=== PATIENT | female | born 1940 | race Caucasian/White ===

== ENCOUNTER → 2019-06-22 10:28 | Outpatient (BNVA) | payer MEDICARE, BC, OTHER, SELFPAY | PROVIDERS: Family Provider Nurse Practitioner Family; Referring Provider Nurse Practitioner Family; Visit Provider Internal Medicine Rheumatology | DX: M19.90 Unspecified osteoarthritis, unspecified site (principal); Z79.899 Other long term (current) drug therapy; M79.89 Other specified soft tissue disorders; Z11.1 Encounter for screening for respiratory tuberculosis | CPT/HCPCS: 36415; 80076; 82306; 82565; 85025; 86480 ==

== ENCOUNTER → 2019-06-22 11:46 | Outpatient (BNVA) | payer MEDICARE, BC, OTHER, SELFPAY | PROVIDERS: Family Provider Nurse Practitioner Family; Referring Provider Nurse Practitioner Family; Visit Provider Internal Medicine Rheumatology | DX: M19.90 Unspecified osteoarthritis, unspecified site (principal); Z79.899 Other long term (current) drug therapy; M79.89 Other specified soft tissue disorders | CPT/HCPCS: 85025 ==

== ENCOUNTER → 2019-07-28 08:49 | Outpatient (BNVA) | payer MEDICARE, OTHER, MEDICAID, SELFPAY | PROVIDERS: Family Provider Nurse Practitioner Family; Visit Provider Internal Medicine Rheumatology | DX: M05.9 Rheumatoid arthritis with rheumatoid factor, unspecified (principal); Z79.52 Long term (current) use of systemic steroids; Z13.820 Encounter for screening for osteoporosis; M19.90 Unspecified osteoarthritis, unspecified site; E55.9 Vitamin D deficiency, unspecified | CPT/HCPCS: 99214 ==

== ENCOUNTER 2019-08-10 14:59 | Outpatient (CLI) | payer MEDICARE, MEDICAID, SELFPAY ==
--- NOTE | 2019-08-10 15:15 | XR_ITS ---
WS: [id number] SCREENING DEXA SCAN [employer] CLINICAL INFORMATION: Osteoporosis screening COMPARISON: None. FINDINGS: Lumbar scoliosis. The L1-L4 bone mineral density measures 1.109 g/cm2. This corresponds to a T score score of -0.6 and Z score of 1.5. Left femoral neck bone mineral density measures 0.477 g/cm2. This corresponds to a T score of -4.2 an d Z score of -2.1. Right femoral neck bone mineral density measures 0.453 g/cm2. This corresponds to a T score -4.4of an d Z score of -2.3. Mean femoral neck bone mineral density measures 0.465 g/cm2. This corresponds to a T score of -4.3 an d Z score of -2.2. XR/XR DEXA axial skeleton* [id number] IMPRESSION: Osteoporosis Patient's FRAX calculated 10 year probability for major osteoporotic fracture i s 49.3 % and osteoporotic hip fracture is 27.0%.
== END 2019-08-10 15:00 | disposition home or self-care (01) ==
LOC: RADWPI 15:06
PROVIDERS: Family Provider Nurse Practitioner Family; PCP Nurse Practitioner Family; Visit Provider Internal Medicine Rheumatology
DX: Z13.820 Encounter for screening for osteoporosis (principal); Z79.52 Long term (current) use of systemic steroids; M41.86 Other forms of scoliosis, lumbar region
CPT/HCPCS: 77080

== ENCOUNTER 2019-11-01 14:40 | Observation (INO) | payer MEDICARE, OTHER, MEDICAID, SELFPAY ==
[2019-11-01] VITALS (7 sets, daily range): BP systolic 130–152; BP diastolic 69–95; PULSE 66–91; RESP 16–25; TEMP 36.6–36.7; O2SAT 95–97; BMI 22.6
--- NOTE | 2019-11-01 14:50 | ECG_ITS ---
Measurements Intervals [place] Rate: 72 P: 67 WV: 162 QRS: -7 QRSD: 132 T: -14 QT: 427 QTc: 470 SINUS RHYTHM RIGHT BUNDLE BRANCH BLOCK [120+ ms QRS DURATION, UPRIGHT V1, 40+ ms S IN I/aVL/V4/V5/V6] Compared to ECG 06/05/2016 13:35:37 Ventricular premature complex(es) no longer present Electronically Signed On 11-02-2019 17:02:17 CDT by Jonah Casas M.D. [id number]
--- NOTE | 2019-11-01 14:53 | ED_ITS ---
HPI - Chest Pain General: Chief Complaint: Chest Pain Stated Complaint: CHEST PAIN Time Seen by Provider: 11/01/19 14:50 Source: patient and EMS Mode of arrival: EMS Limitations: no limitations History of Present Illness: HPI narrative: 79-year-old female who has a history of rheumatoid arthritis and chest pain. Patient states the pain is been a pressure type pain. States pain is resolved with nitro. Patient's currently pain-free. She denies any fever or shortness of breath. MD complaint: chest pain Onset (ago): hour(s) Timing of current episode: episodic Onset: during rest Pain location: substernal Pain radiation: none Severity: moderate Quality: tightness Relieving factors: nitroglycerin Exacerbating factors: nothing Associated symptoms: Deny abdominal pain, dyspnea, fever(s), nausea or vomiting Review of Systems Const: Denies: fever(s), chills, body aches or change in appetite Eyes: Denies: blurry vision or eye discomfort ENMT: Denies: throat pain or dental pain Card: Reports: chest pain Resp: Denies: dyspnea GI: Denies: abdominal pain, nausea, vomiting or diarrhea : Denies: dysuria Musc: Denies: neck pain or back pain Skin/Breast: Denies: rash Neuro: Denies: headache(s) Psych: Denies: depression Claudy/Lymph: Denies: easy bruising All/Imm: Denies: urticaria PFSH ED PFSH: Medical History (Updated 07/28/19 @ 09:50 by Giorgi Patel MD) Current chronic use of systemic steroids High risk medication use Immunization counseling Osteoporosis screening Rheumatoid arthritis with rheumatoid factor Surgical History (Updated 07/28/19 @ 09:50 by Giorgi Patel MD) History of hysterectomy Family History (Updated 07/28/19 @ 08:59 by Magaly Larkin LPN) Father Myocardial infarction Daughter Diabetes Brother Cancer CHF (congestive heart failure) Denies family history of Rheumatoid arthritis Lupus Social History (Updated 06/04/19 @ 15:01 by Magaly Larkin LPN) Smoking and tobacco status: never smoked Alcohol intake: never Physical Exam Const: COMMON NORMALS: no acute distress, patient oriented x3 and healthy appearing HENMT: COMMON NORMALS: normocephalic and atraumatic HEAD & SCALP: normocephalic and atraumatic Eye: COMMON NORMALS: Equal, round and reactive pupils present and EOMs intact bilaterally PUPIL: Yes Equal, round and reactive pupils present Neck/C-Spine: COMMON NORMALS: full ROM and supple Chest: COMMONS NORMALS: normal inspection of the chest and normal palpation of entire chest wall Resp: COMMON NORMALS: normal respiratory effort, No retractions, No use of accessory muscles and clear to auscultation bilaterally AUSCULTATION: clear to auscultation bilaterally Cardio: COMMON NORMALS: regular rate, regular rhythm and No murmurs present (Cardio) RATE: regular rate RHYTHM: regular rhythm GI: COMMON NORMALS: Normal to inspection, nondistended, normoactive bowel sounds present, Soft to palpation, non-tender and no masses PALPATION: Yes Soft to palpation Extremity: COMMON NORMALS: normal to inspection and full ROM Neuro: COMMON NORMALS: patient oriented x3, moves all extremities and no focal motor deficits Psych: COMMON NORMALS: mental status grossly normal, Normal thought process present and cooperative THOUGHT PROCESS: Normal thought process present Skin: COMMON NORMALS: no rashes or lesions noted and no wounds GENERAL SKIN EXAM: no rashes or lesions noted Course Vital Signs: Vital signs: Vital Signs Temperature 98.1 F 11/01/19 14:43 Pulse Rate 91 11/01/19 14:43 Respiratory Rate 18 11/01/19 14:43 Blood Pressure 135/82 11/01/19 14:43 Pulse Oximetry 96 11/01/19 14:43 MDM - Chest Pain MDM Narrative: Medical decision making narrative: Patient presents here with chest pain with normal EKG does have slightly elevated troponin. Patient given aspirin in route. Patient has been chest pain free here. I spoke to hospitalist Dr. Butler who is admitting. Lab Data: Labs: Lab Results 11/01/19 11/01/19 11/01/19 Range/Units 15:00 15:00 15:00 WBC 6.9 (4.0-10.0) 10^3/ uL RBC 3.19 L (4.1-5.3) 10^6/u L Hgb 10.7 L (11.5-15.3) g/dL Hct 33.4 L (37.0-47.0) % MCV 104.7 H (81-99) fL MCH 33.5 (28.0-34.0) pg MCHC 32.0 (30.0-36.0) g/dL RDW 13.5 (12.1-15.1) % Plt Count 284 (130-400) 10^3/c mm MPV 9.2 (7.4-10.4) fL Neut % (Auto) 65.8 % Lymph % (Auto) 27.3 % [place] % (Auto) 5.4 % Eos % (Auto) 0.6 % Baso % (Auto) 0.6 % Neut # (Auto) 4.5 (1.8-7.7) 10^3/u L Lymph # (Auto) 1.9 (0.8-4.8) 10^3/u L [place] # (Auto) 0.4 (0.2-0.9) 10^3/u L Eos # (Auto) 0.0 (0.0-0.8) 10^3/u L Baso # (Auto) 0.0 (0.0-0.1) 10^3/u L Nucleated RBC % (a uto) 0 % Nucleated RBCs # 0.0 /100WBC Sodium 137 (136-145) mmol/L Potassium 4.5 (3.5-5.1) mmol/L Chloride 100 (98-107) mmol/L Carbon Dioxide 22 (22-29) mmol/L Anion Gap 19.5 H (5-19) BUN 11 (8-23) mg/dL Creatinine 0.8 (0.5-0.9) mg/dL Glucose 137 H (65-115) mg/dL Calculated Osmolal ity 282 L (285-295) mOsm/k g Calcium 9.7 (8.5-10.5) mg/dL Total Bilirubin 0.2 (0.15-1.2) mg/dL AST 25 (0-32) U/L ALT 20 (0-33) U/L Alkaline Phosphata se 63 (35-105) IU/L Troponin T Baselin e 68 H (0-10) ng/mL Total Protein 6.7 (6.6-8.7) g/dL Albumin 3.8 (3.5-5.2) g/dL Globulin 2.9 (1.3-4.6) g/dL EKG Data^: EKG 1: Attestation: I personally reviewed and interpreted this EKG as follows: EKG interpretation date: 11/01/19 EKG interpretation time: 14:53 Interpretation: nsr hr [address] or t wave abnormalities qrs 122 qtc 423 Discharge Plan Discharge Prescriptions: No Action methotrexate sodium 2.5 mg tablet See Rx Instructions PO DAILY RF: 0 aspirin [Adult Low Dose Aspirin] 81 mg tablet,delayed release (DR/EC) 81 mg PO DAILY RF: 0 atenolol 25 mg tablet 25 mg PO DAILY RF: 0 polysaccharide iron complex [Ferrex 150] 150 mg iron capsule 150 mg PO DAILY RF: 0 folic acid 1 mg tablet 1 mg PO DAILY RF: 0 hydrocodone-acetaminophen 10-325 mg tablet 1 tab PO Q6H PRN (Reason: RHEUMATOID ARTHRITIS) RF: 0 lisinopril 2.5 mg tablet 2.5 mg PO DAILY RF: 0 prednisone 5 mg tablet 5 mg PO DAILY RF: 0 alendronate [Fosamax] 70 mg tablet 70 mg PO .once a week 30 Days Qty: 5 RF: 5 Oyster Shell Calcium 500 500 mg calcium (1,250 mg) Tablet 1,000 mg PO DAILY RF: 0 Zoya-Lanta 200-200-20 mg/5 mL Suspension 30 ml PO QID PRN (Reason: Acid Reflux) RF: 0 cefdinir 300 mg Capsule 300 mg PO BID RF: 0 cholecalciferol (vitamin D3) 50 mcg (2,000 unit) Tablet 50 mcg PO DAILY RF: 0 Coding Level of Care Code ED Digital Marketing Assistant for Chg Fwd Exam Comprehensive
[2019-11-01 15:04] LABS: Basophils % 0.6 %; Eosinophils % 0.6 %; Hematocrit 33.4 % (37.0-47.0); Hemoglobin 10.7 g/dL (11.5-15.3); Lymphocytes # 1.9 10^3/uL (0.8-4.8); Lymphocytes % 27.3 %; Mean Corpuscular Hemoglobin 33.5 pg (28.0-34.0); Mean Corpuscular Volume 104.7 fL (81-99); Mean Platelet Volume 9.2 fL (7.4-10.4); Monocytes # 0.4 10^3/uL (0.2-0.9); Monocytes % 5.4 %; Neutrophils # 4.5 10^3/uL (1.8-7.7); Neutrophils % 65.8 %; Nucleated Red Blood Cells % 0 %; Platelet Count 284 10^3/cmm (130-400); Red Blood Count 3.19 10^6/uL (4.1-5.3); Red Cell Distribution Width 13.5 % (12.1-15.1); White Blood Count 6.9 10^3/uL (4.0-10.0)
[2019-11-01 15:19] LABS: Alanine Aminotransferase 20 U/L (0-33); Albumin Level 3.8 g/dL (3.5-5.2); Alkaline Phosphatase 63 IU/L (35-105); Anion Gap 19.5 (5-19); Aspartate Amino Transferase 25 U/L (0-32); Blood Urea Nitrogen 11 mg/dL (8-23); Calcium 9.7 mg/dL (8.5-10.5); Carbon Dioxide 22 mmol/L (22-29); Chloride 100 mmol/L (98-107); Creatinine Clr Calc Pharmacy 50.0138; Globulin 2.9 g/dL (1.3-4.6); Glucose 137 mg/dL (65-115); Osmolality Calculated 282 mOsm/kg (285-295); Potassium 4.5 mmol/L (3.5-5.1); Sodium 137 mmol/L (136-145); Total Bilirubin 0.2 mg/dL (0.15-1.2); Total Protein 6.7 g/dL (6.6-8.7)
[2019-11-01 15:21] LABS: Troponin(5th) Baseline 68 ng/mL (0-10)
--- NOTE | 2019-11-01 16:00 | XRR_ITS ---
PROCEDURE INFORMATION: Exam: XR Chest, 1 View Exam date and time: 11/01/2019 4:00 PM Age: 79 years old Clinical indication: Chest pain; Additional info: Cp TECHNIQUE: Imaging protocol: XR of the chest Views: 1 view. COMPARISON: CR Chest 2 views* [id number] 05/20/2019 11:06 AM FINDINGS: Lungs: There are pulmonary parenchymal calcifications consistent with remote granulomatous organism exposure. Pleural space: Unremarkable. No pleural effusion. No pneumothorax. Heart/Mediastinum: Large hernia containing bowel loops is similar to the prior study and obscures the right lung base. Possible cardiomegaly. Heart border is obscured by the hernia. Vasculature: There is calcified plaque in the aortic arch. Bones/joints: Generalized osteopenia. High-riding humeral heads abut the undersurfaces of the acromion processes consistent with rotator cuff tendon tears, similar to the prior study. XR/XR chest 1V portable [id number] IMPRESSION: Large hernia containing bowel loops is similar to the prior study and obscures the right lung base.
--- NOTE | 2019-11-01 16:50 | ECG_ITS ---
Measurements Intervals [place] Rate: 69 P: 61 VA: 154 QRS: -8 QRSD: 133 T: -14 QT: 411 QTc: 443 SINUS RHYTHM RIGHT BUNDLE BRANCH BLOCK [120+ ms QRS DURATION, UPRIGHT V1, 40+ ms S IN I/aVL/V4/V5/V6] Compared to ECG 06/05/2016 13:35:37 Ventricular premature complex(es) no longer present Electronically Signed On 11-02-2019 17:07:05 CDT by Jonah Casas M.D. [id number]
[2019-11-01 17:06] LABS: Troponin 5 2HR 70.02 ng/mL (0-10); Troponin 5 2HR Delta 2.02 ABS# (0-10)
--- NOTE | 2019-11-01 17:48 | PM.HP ---
Providers/Chief Complaint Admitting Physician: Antonio Campbell MD Primary Care Provider: Yamileth Grove Chief Complaint: CHEST PAIN History of Present Illness Isa Tompkins is a 79 year old female with a past medical history of SVT on atenolol, rheumatoid arthritis on methotrexate and chronic prednisone, hypertension, hyperlipidemia history of beta-natalia induced bradycardia, chronic systolic and diastolic CHF, who presents to [facility] due to complaints of chest pain. Patient states that she is a patient of Dr. Grove, she has been doing well for the last few months, she is not any able to come out of the assisted living facility as her lockdown due to COVID-19 precautions, she is not been able to see her who is in the dementia unit, nor has she been able to see her family members, which has been distressing for her. Patient states that on Saturday, she was sitting down in a chair, watching TV, when she developed substernal chest pain lasting a few seconds, associate with diaphoresis, feeling unwell, nonradiating, no nausea, no vomiting, no lightheaded, no dizziness, sharp pain, she reported this to the nursing staff, who then, no blood, town supported patient to [facility], where she was diagnosed according to patient with a mild heart attack, and a UTI. Patient was supposed to have an outpatient follow-up with Dr. Grove and a cardiac stress test this week. But this afternoon, patient again developed an episode of substernal chest pain, sharp, nonradiating, associate this time with diaphoresis, and lightheadedness, dizziness, states that is not as severe as her chest pain on Saturday, but she looked castro according to nursing staff, and they were concerned for her wellbeing, so they transported patient to [facility] for further evaluation. Patient denies a history of CAD, no history of stent placement, no history of CABG, has had chest pain in past with a negative stress test, has a family history of CAD, no smoking, no diabetes. Review of Systems Const: Denies: fever(s), chills, fatigue or malaise Eyes: Denies: change in vision or blurry vision ENMT: Denies: nasal congestion Card: Reports: chest pain and lightheadedness; Denies: palpitations Resp: Denies: dyspnea, productive cough, non-productive cough or wheezing GI: Denies: abdominal pain, nausea, vomiting, hematemesis, diarrhea, constipation, hematochezia or melena : Denies: flank pain, dysuria or urinary frequency Musc: Denies: neck pain or back pain Skin/Breast: Denies: rash Neuro: Denies: headache(s), dizziness or vertigo Psych: Denies: anxiety or depression Endo: Denies: polyuria or polydipsia Medications/Allergies Home Medications Medication Instructions Recorded Confirmed Last Taken Type aspirin 81 mg tablet,delayed 81 mg PO DAILY tab 06/04/19 11/01/19 11/01/19 History release atenolol 25 mg tablet 25 mg PO DAILY tab 06/04/19 11/01/19 11/01/19 History folic acid 1 mg tablet 1 mg PO DAILY tab 06/04/19 11/01/19 11/01/19 History hydrocodone 10 mg-acetaminophen 1 tab PO Q6H PRN 06/04/19 11/01/19 11/01/19 History 325 mg tablet lisinopril 2.5 mg tablet 2.5 mg PO DAILY tab 06/04/19 11/01/19 11/01/19 History methotrexate sodium 2.5 mg tablet See Rx Instructions PO DAILY tab 06/04/19 11/01/19 Unknown History polysaccharide iron complex 150 mg 150 mg PO DAILY cap 06/04/19 11/01/19 11/01/19 History iron capsule prednisone 5 mg tablet 5 mg PO DAILY tab 06/04/19 11/01/19 11/01/19 History alendronate 70 mg tablet 70 mg PO .once a week 30 Days #5 08/16/19 11/01/19 Unknown Rx tab alum-mag hydroxide-simeth 30 ml PO QID PRN 11/01/19 11/01/19 10/28/19 History [Zoay-Lanta] calcium carbonate [Oyster Shell 1,000 mg PO DAILY 11/01/19 11/01/19 10/31/19 History Calcium 500] cefdinir 300 mg PO BID 11/01/19 11/01/19 11/01/19 History cholecalciferol (vitamin D3) 50 mcg PO DAILY 11/01/19 11/01/19 10/31/19 History Allergies Allergy/AdvReac Type Severity Reaction Status Date / Time No Known Allergies Allergy Unverified 11/01/19 14:43 PFSH Acute PFSH: Medical History (Updated 11/01/19 @ 16:53 by ) Current chronic use of systemic steroids High risk medication use Immunization counseling Osteoporosis screening Rheumatoid arthritis with rheumatoid factor Surgical History (Updated 07/28/19 @ 09:50 by Giorgi Patel MD) History of hysterectomy Family History (Updated 07/28/19 @ 08:59 by Magaly Larkin LPN) Father Myocardial infarction Daughter Diabetes Brother Cancer CHF (congestive heart failure) Denies family history of Rheumatoid arthritis Lupus Social History (Updated 06/04/19 @ 15:01 by Magaly Larkin LPN) Smoking and tobacco status: never smoked Alcohol intake: never Vitals/I&O/Wt Last Vital Signs Temp 97.8 F 11/01/19 17:37 Pulse 73 11/01/19 17:37 Resp 25 H 11/01/19 17:37 BP 130/74 11/01/19 17:37 Pulse Ox 95 11/01/19 17:37 Weight last 48 hrs Weight 58.06 kg Physical Exam Const: COMMON NORMALS: no acute distress and patient oriented x3 GENERAL APPEARANCE: cooperative and comfortable HENMT: COMMON NORMALS: normocephalic HEAD & SCALP: normocephalic Eye: COMMON NORMALS: Equal, round and reactive pupils present, EOMs intact bilaterally and no papilledema GENERAL EYE: appearance normal, both eyes and all related structures PUPIL: Yes Equal, round and reactive pupils present DIRECT OPHTHALMOSCOPY: Yes no papilledema Neck/C-Spine: COMMON NORMALS: full ROM, no lymphadenopathy, no JVD and Thyroid normal THYROID: Thyroid normal Lymph: LYMPHATIC: no lymphadenopathy noted Resp: COMMON NORMALS: normal respiratory effort, No retractions, No use of accessory muscles and clear to auscultation bilaterally AUSCULTATION: clear to auscultation bilaterally Cardio: COMMON NORMALS: no JVD, regular rate, regular rhythm, S1 normal heart sound present, S2 normal heart sound present, No gallops present (Cardio), No clicks present (Cardio) and No murmurs present (Cardio) RATE: regular rate RHYTHM: regular rhythm HEART SOUNDS: S1 normal heart sound present and S2 normal heart sound present GI: COMMON NORMALS: Normal to inspection, nondistended, normoactive bowel sounds present, Soft to palpation, non-tender and No hepatosplenomegaly present PALPATION: Yes Soft to palpation and Yes No hepatosplenomegaly present Extremity: COMMON NORMALS: normal to inspection, full ROM and no pedal edema Neuro: COMMON NORMALS: patient oriented x3, CN's II-XII intact bilaterally, moves all extremities and no focal motor deficits Psych: COMMON NORMALS: mental status grossly normal, Normal thought process present and cooperative THOUGHT PROCESS: Normal thought process present Data : 11/01/19 15:00 11/01/19 15:00 A&P Assessment and plan (1) Chest pain: -Chest pain, sounds cardiac in nature -Risk factors include hypertension, family history, chronic prednisone, rheumatoid arthritis -Recently on Saturday, went to [facility], diagnosed with a mild heart attack -On admission no chest pain, but initial troponin 68, 120-minute 70, delta 2.02, EKG no acute ST-T wave changes -Back in 09/20/2013, patient had a low probability stress test- -last echocardiogram on 11/27/2015 showed a slightly decreased ejection fraction of 50%, grade 1 left ventricular diastolic dysfunction, mild diffuse hypokinesis the left ventricle, more of the septum, moderate hypokinesia of the basal inferior and inferior lateral segment Plan: -Admit to cardiac stepdown unit -Aspirin, statin, atenolol -Nitro for chest pain -Telemetry monitoring, monitor for chest pain, serial EKGs, serial troponins -N.p.o. midnight -Cardiac stress test tomorrow morning -Order cardiac echocardiogram -Patient is DNR/DNI, does not want aggressive interventions -Lovenox for DVT prophylaxis Status: Acute (2) Hyperlipidemia: (3) History of paroxysmal supraventricular tachycardia: (4) Rheumatoid arthritis with rheumatoid factor: (5) Hypertension: Attestations Medical Necessity Statement*: Requires hospitalization, outpatient with observation, chest pain Coding Level of Care Code Acute Dicer Machine Operator for [facility] Fw Diagnoses Chest pain R07.9 Hyperlipidemia E78.5 History of paroxysmal supraventricular tachycardia Z86.79 Rheumatoid arthritis with rheumatoid factor M05.9 Hypertension I10
[2019-11-01 18:49] LABS: Thyroid Stimulating Hormone 0.88 uIU/mL (0.27-4.20)
[2019-11-01 18:54] LABS: NT Pro B Type Natriuretic Pept 1333 pg/mL (0-450)
[2019-11-01] MEDS: enoxaparin 40 mg/0.4 mL Syringe SUBCUT (18:55)
--- NOTE | 2019-11-01 20:50 | ECG_ITS ---
Measurements Intervals [place] Rate: 89 P: 67 CT: 156 QRS: -13 QRSD: 122 T: -16 QT: 376 QTc: 460 SINUS RHYTHM RIGHT BUNDLE BRANCH BLOCK [120+ ms QRS DURATION, UPRIGHT V1, 40+ ms S IN I/aVL/V4/V5/V6] Compared to ECG 06/05/2016 13:35:37 Ventricular premature complex(es) no longer present Electronically Signed On 11-02-2019 17:05:45 CDT by Jonah Casas M.D. [id number]
[2019-11-01] MEDS: atorvastatin 40 mg Tablet PO (21:01)
[2019-11-02 03:30] VITALS: BP 151/64; PULSE 72; RESP 21; TEMP 36.7; O2SAT 94
[2019-11-02 05:16] LABS: Basophils # 0.1 10^3/uL (0.0-0.1); Basophils % 1.2 %; Eosinophils # 0.1 10^3/uL (0.0-0.8); Eosinophils % 1.8 %; Hematocrit 33.2 % (37.0-47.0); Hemoglobin 10.6 g/dL (11.5-15.3); Lymphocytes % 33.8 %; Mean Corpuscular HGB Conc 31.9 g/dL (30.0-36.0); Mean Corpuscular Hemoglobin 32.6 pg (28.0-34.0); Mean Corpuscular Volume 102.2 fL (81-99); Mean Platelet Volume 9.3 fL (7.4-10.4); Monocytes # 0.6 10^3/uL (0.2-0.9); Monocytes % 10.3 %; Neutrophils # 3.1 10^3/uL (1.8-7.7); Neutrophils % 52.6 %; Nucleated Red Blood Cells % 0 %; Platelet Count 274 10^3/cmm (130-400); Red Blood Count 3.25 10^6/uL (4.1-5.3); Red Cell Distribution Width 13.3 % (12.1-15.1)
[2019-11-02 05:35] LABS: Alanine Aminotransferase 17 U/L (0-33); Albumin Level 3.7 g/dL (3.5-5.2); Alkaline Phosphatase 55 IU/L (35-105); Anion Gap 14.7 (5-19); Aspartate Amino Transferase 22 U/L (0-32); Blood Urea Nitrogen 10 mg/dL (8-23); Calcium 9.7 mg/dL (8.5-10.5); Carbon Dioxide 27 mmol/L (22-29); Chloride 103 mmol/L (98-107); Creatinine Clr Calc Pharmacy 50.0138; Globulin 2.8 g/dL (1.3-4.6); Glucose 103 mg/dL (65-115); Magnesium 2.1 mg/dL (1.7-2.3); Osmolality Calculated 288 mOsm/kg (285-295); Phosphorus 3.3 mg/dL (2.5-4.5); Potassium 3.7 mmol/L (3.5-5.1); Sodium 141 mmol/L (136-145); Total Bilirubin 0.3 mg/dL (0.15-1.2); Total Protein 6.5 g/dL (6.6-8.7)
[2019-11-02 05:37] LABS: Estmated Average Glucose 105; Hemoglobin A1C 5.3 % (4.0-6.0)
--- NOTE | 2019-11-02 06:00 | ECG_ITS ---
NAME OF STUDY: LEXISCAN SESTAMIBI STRESS TEST INDICATION: Chest Pain, NOTE: Please note that this is the electrocardiogram portion of the Lexiscan/Sestamibi stress test. The perfusion scan will be documented separately. DATA: Baseline heart rate was 69 beats per minute. Baseline blood pressure was 102/56 millimeters of mercury. Target heart rate was 142. Maximum heart rate achieved was 111. which was 78 % of the predicted target heart rate. Maximum blood pressure was 102/94 millimeters of mercury. The reason for ending the test was completion of the protocol. The patient did not experience any symptoms. ELECTROCARDIOGRAM: BASELINE: Sinus rhythm. Normal axis. Right bundle branch block, otherwise no ST-T changes suggestive of ischemia noted. No arrhythmia noted. EXERCISE: After Lexiscan injection, no ST-T changes suggestive of ischemic noted. No arrhythmia noted. CONCLUSION: Please note due to baseline abnormality of the EKG specificity and sensitivity of the EKG portion of LexiScan MIBI stress test will be low 1. EKG not suggestive of ischemia 2. Lexiscan injection unremarkable. 3. Perfusion scan will be documented separately. Electronically Signed On 11-02-2019 17:54:51 CDT by Chadwick Gonsales M.D. [id number]
[2019-11-02 06:20] LABS: Chol HDL Ratio 4.72 mg/dL (0.0-4.40); Cholesterol 151 mg/dL (0-200); HDL Cholesterol 32 mg/dL (60-100); LDL Cholesterol Calculated 85 mg/dL (50-129); LDL HDL Ratio 2.66 RATIO (0.00-3.22); Triglycerides 168 mg/dL (0-150)
--- NOTE | 2019-11-02 07:00 | USCV_ITS ---
Isa Tompkins Age: 79 Gender: F : 1940 Exam Date: 11/02/2019 07:09 Ordering Phys: Antonio Campbell MD Technologist: Simran Simms Exam Location: [facility] [place] Indication: CHEST PAIN BP: 151 / 64 HR: 66 Rhythm: Sinus Technical Quality: Adequate MEASUREMENTS (Male / Female) Normal Values 2D ECHO LV Diastolic Diameter PLAX 4.0 cm 4.2 - 5.9 / 3.9 - 5.3 cm LV Systolic Diameter PLAX 2.4 cm LV Chamber Size 3.8 cm IVS Diastolic Thickness 1.4 cm 0.6 - 1.0 / 0.6 - 0.9 cm IVS Systolic Thickness 1.7 cm LVPW Diastolic Thickness 1.8 cm 0.6 - 1.0 / 0.6 - 0.9 cm LVPW Systolic Thickness 1.9 cm RV Chamber Size 2.6 cm LVOT Diameter 2.0 cm LV Ejection Fraction 2D Teich 70.0 % LV Ejection Fraction MOD 2C 59.0 % LV Ejection Fraction 2C AL 59.5 % LA Diameter 3.1 cm Aorta at Sinotubular Diameter 2.7 cm M-MODE LV Diastolic Diameter MM 4.9 cm 4.2 - 5.9 / 3.9 - 5.3 cm LV Systolic Diameter MM 3.2 cm LV Ejection Fraction MM Teich 64.2 % IVS Diastolic Thickness MM 0.9 cm 0.6 - 1.0 / 0.6 - 0.9 cm IVS Systolic Thickness MM 1.1 cm LVPW Diastolic Thickness MM 1.1 cm 0.6 - 1.0 / 0.6 - 0.9 cm LVPW Systolic Thickness MM 1.2 cm Aortic Annulus Diameter 2.7 cm LA Ao Ratio MM 1.2 MV E Point Septal Separation 0.9 cm DOPPLER AV Peak Velocity 129.0 cm/s LVOT Peak Velocity 90.0 cm/s AV Area Cont Eq vti 2.8 cm squared AV Area Cont Eq pk 2.3 cm squared MV Area PHT 2.7 cm squared Mitral E to A Ratio 0.9 MV E' Velocity 8.0 cm/s Mitral E to MV E' Ratio 7.7 Mitral E to LV E' Lateral Ratio 7.9 Mitral E to LV E' Septal Ratio 7.5 TR Peak Velocity 281.0 cm/s TR Peak Gradient 31.6 mmHg TV Peak E Velocity 38.0 cm/s Right Atrial Pressure 3.0 mmHg Pulmonary Artery Systolic Pressu 34.6 mmHg PV Peak Velocity 65.0 cm/s RV Acceleration Time 0.1 s RV Ejection Time 0.3 s RV AcT/ET 0.4 FINDINGS Left Ventricle Normal left ventricular size and systolic function, EF 55 %. Grade I/IV diastolic dysfunction (abnormal relaxation filling pattern), normal to mildly elevated filling pressures. Right Ventricle Normal right ventricular size and systolic function. Right Atrium Normal right atrial size. Left Atrium Normal left atrial size. Mitral Valve Thickened mitral valve. Trace to mild mitral valve regurgitation. Aortic Valve Thickened aortic valve. Tricuspid Valve no gross abnormalities noted Pulmonic Valve Trace pulmonary valve regurgitation. Pericardium Small pericardial effusion. Aorta Normal aortic annulus size. CONCLUSIONS Normal left ventricular size and systolic function, EF 55 %. Grade I/IV diastolic dysfunction (abnormal relaxation filling pattern), normal to mildly elevated filling pressures. Thickened mitral valve. Trace to mild mitral valve regurgitation. Thickened aortic valve. Trace pulmonary valve regurgitation. Small pericardial effusion. There are no intracardiac masses. Compared to the previous study from 02/03/2016, there may not be a significant change Dr Gagandeep Grove MD [facility] (Electronically Signed) Final Date: 02 November 2019 13:20 S
[2019-11-02 07:11] VITALS: BP 164/88; PULSE 67; RESP 12; TEMP 36.6; O2SAT 98
[2019-11-02 08:15] VITALS: BP 110/81; PULSE 99
[2019-11-02] MEDS: regadenoson 0.4 Mg/5 ml Syringe IVP (08:15)
[2019-11-02] MEDS: aminophylline 25 mg/mL SDV 10 mL IVP (08:21)
[2019-11-02] MEDS: iron polysaccharide complex 150 mg Capsule PO (09:51)
[2019-11-02] MEDS: atenolol 50 mg Tablet 25 MG PO (09:51)
[2019-11-02] MEDS: calcium carbonate 500 mg Chew Tablet 1000 MG PO (09:51)
[2019-11-02] MEDS: lisinopril 2.5 mg Tablet PO (09:51)
[2019-11-02] MEDS: predniSONE 5 mg Tablet PO (09:52)
[2019-11-02] MEDS: aspirin 81 mg EC Tablet PO (09:52)
[2019-11-02] MEDS: folic acid 1 mg Tablet PO (09:52)
--- NOTE | 2019-11-02 09:57 | PC.CHAP ---
Pastoral Care Encounter/Spiritual Assessment Type of Contact [] Declined cyber forensic specialist visit [] Patient/Family/Request visit [] Outpatient visit [] Follow-up visit [] Physician referral [] Code/Alert [x] Routine visit [] Staff referral [] Actively dying [] Patient sleeping [] Family support [] [x] Out of room [] Palliative care [] [] Receiving care in room [] Pre-surgical visit [] Trauma [] Long length of stay [] ICU visit [x] Other: testing Relational/Emotional Strength [] Patient feels connected with others/family/visitors/staff [] Distress [] Loneliness/isolation [] Abandonment Spirituality of Patient [] Person of Yu [] Attends Scientology of their Yu [] Believes in Prayer [] Reads Bible or Yarsanism materials [] There are Spiritual issues to be addressed Trade Sales Assistant Interventions [] Prayer [] Active listening [] Non-anxious presence [] Spiritual/emotional support [] Crisis/trauma care [] Spiritual counseling [] Bereavement support [] Provided bereavement packet [] Provided Bible/devotional materials [] Provided toy/stuffed animal, coloring book to patient or family member [] Provided Communion [] Anointing/[place] [] Salvation [x] Completed spiritual assessment [] Other: Impact on Illness or Injury [] Angry [] Fearful [] Anxious [] Often cries [] Exhaustion [] Unable to work [] Unable to attend amish [] Unable to walk/stand [] Unable to read [] Unable to drive [] Unable to eat/drink [] Unable to sleep [] Unable to be with family [] Patient intubated [] Other: Summary Time spent with patient
--- NOTE | 2019-11-02 10:20 | PC.OT ---
OT note: Received word pt recently back from stress test. Will hold at this time.
[2019-11-02 10:33] VITALS: PULSE 72; O2SAT 96
[2019-11-02 10:38] VITALS: BP 111/70; PULSE 75; RESP 22; TEMP 36.6; O2SAT 95
[2019-11-02] MEDS: HYDROcodone-acetaminophen 10-325 mg Tablet 1 TAB PO (11:07)
--- NOTE | 2019-11-02 13:30 | PC.NURSE ---
pt up working with physical therapy
--- NOTE | 2019-11-02 13:47 | PC.NURSE ---
during rounding with , wants holter monitor placed today if possible. [facility] contacted and confirmed that is pt was down there by 4 that it could be placed today.
--- NOTE | 2019-11-02 13:56 | P.DS_ITS ---
Discharge Providers Date of Admission: 11/01/19 16:51 Date of Discharge: November 02, 2019 Attending Provider at Admission: Antonio Campbell MD Attending Provider at Discharge: Hakan Tompkins MD Primary Care Provider: Yamileth Grove Diagnoses at Discharge Discharge Diagnosis (1) Chest pain: Status: Acute (2) Rheumatoid arthritis with rheumatoid factor: Reason for Visit Reason for Visit: Reason For Visit: CHEST PAIN Hospital Course Discharge Summary: Isa Tompkins is a 79 year old female with a past medical history of SVT on atenolol, rheumatoid arthritis on methotrexate and chronic prednisone, hypertension, hyperlipidemia history of beta-natalia induced bradycardia, chronic systolic and diastolic CHF, who presents to [facility] due to complaints of chest pain. Patient states that she had the symptoms twice in 1 week but the time she was sitting in chair, watching TV. On prior episode she was admitted at [facility] where she was diagnosed of having a mild heart attack and UTI and was discharged on oral antibiotics. Patient was admitted to the hospital this time on October 31 when she started having substernal chest pain which was sharp in nature associated with diaphoresis and patient looking pale for which s he was transferred to [facility]. Her troponin cycles remained negative. Due to concerns of possible unstable angina she underwent stress test on November 01 which was negative for any active ischemia. It is possible patient's symptoms are not related to angina but could be related to arrhythmia. Specialization patient did not have any further episodes of chest discomfort and also telemetry remained normal sinus rhythm. To rule out possible arrhythmia patient was advised to have a Holter monitor for at least 2 weeks. Prior to discharge physical therapy evaluation was done which she fractured well and was independently ambulatory without any arrhythmia on telemetry as well. She is been discharged in hemodynamically stable condition with advised to follow-up with Dr. Grove who is her outpatient reporter within next 2 weeks for further management. Physical Exam Const: COMMON NORMALS: no acute distress and patient oriented x3 GENERAL APPEARANCE: cooperative and comfortable HENMT: COMMON NORMALS: normocephalic HEAD & SCALP: normocephalic Eye: COMMON NORMALS: Equal, round and reactive pupils present, EOMs intact bilaterally and no papilledema GENERAL EYE: appearance normal, both eyes and all related structures PUPIL: Yes Equal, round and reactive pupils present DIRECT OPHTHALMOSCOPY: Yes no papilledema Neck/C-Spine: COMMON NORMALS: full ROM, no lymphadenopathy, no JVD and Thyroid normal THYROID: Thyroid normal Lymph: LYMPHATIC: no lymphadenopathy noted Resp: COMMON NORMALS: normal respiratory effort, No retractions, No use of accessory muscles and clear to auscultation bilaterally AUSCULTATION: clear to auscultation bilaterally Cardio: COMMON NORMALS: no JVD, regular rate, regular rhythm, S1 normal heart sound present, S2 normal heart sound present, No gallops present (Cardio), No clicks present (Cardio) and No murmurs present (Cardio) RATE: regular rate RHYTHM: regular rhythm HEART SOUNDS: S1 normal heart sound present and S2 normal heart sound present GI: COMMON NORMALS: Normal to inspection, nondistended, normoactive bowel sounds present, Soft to palpation, non-tender and No hepatosplenomegaly present PALPATION: Yes Soft to palpation and Yes No hepatosplenomegaly present Extremity: COMMON NORMALS: normal to inspection, full ROM and no pedal edema Neuro: COMMON NORMALS: patient oriented x3, CN's II-XII intact bilaterally, moves all extremities and no focal motor deficits Psych: COMMON NORMALS: mental status grossly normal, Normal thought process present and cooperative THOUGHT PROCESS: Normal thought process present Discharge Data Data Completed and Pending: Completed Studies During Hospitalization Category Date Time Status XR chest 1V suzette ble [id number] Stat Exams 11/01/19 16:00 Completed NM yyaa perf SPECT r/s* [id number] Routin e Nuc Med 11/02/19 17:45 Completed CV echo complete* [id number] Routine Ultrasound 11/02/19 07:00 Completed Pending at discharge Category Date Time Status Sestamibi Stress Test Request Routi ne Exams 11/01/19 17:45 Stop Req Sestamibi Stress Test Request Routi ne Exams 11/02/19 06:00 Ordered Complete Blood Co unt w/Auto AM LABS Lab 11/03/19 04:00 Ordered Complete Blood Co unt w/Auto AM LABS Lab 11/04/19 04:00 Ordered Comprehensive Met abolic Panel AM LA BS Lab 11/03/19 04:00 Ordered Comprehensive Met abolic Panel AM LA BS Lab 11/04/19 04:00 Ordered Magnesium AM LABS Lab 11/03/19 04:00 Ordered Magnesium AM LABS Lab 11/04/19 04:00 Ordered Phosphorus AM LAB S Lab 11/03/19 04:00 Ordered Phosphorus AM LAB S Lab 11/04/19 04:00 Ordered Labs from last 24 hours 11/02/19 11/02/19 11/02/19 04:32 04:32 04:32 WBC RBC Hgb Hct MCV MCH MCHC RDW Plt Count MPV Neut % (Auto) Lymph % (Auto) [place] % (Auto) Eos % (Auto) Baso % (Auto) Neut # (Auto) Lymph # (Auto) [place] # (Auto) Eos # (Auto) Baso # (Auto) Nucleated RBC % (a uto) Nucleated RBCs # Sodium 141 Potassium 3.7 Chloride 103 Carbon Dioxide 27 Anion Gap 14.7 BUN 10 Creatinine 0.7 Glucose 103 Estimat Average Gl ucose 105 Hemoglobin A1c 5.3 Calculated Osmolal ity 288 Calcium 9.7 Phosphorus 3.3 Magnesium 2.1 Total Bilirubin 0.3 AST 22 ALT 17 Alkaline Phosphata se 55 Troponin I 6 Hour Troponin I Hi Sens Del Troponin T Baselin e Troponin T 120 Min [place] Delta Troponin T NT-Pro-B Natriuret Pep Total Protein 6.5 L Albumin 3.7 Globulin 2.8 Triglycerides 168 H Cholesterol 151 LDL Cholesterol, C alc 85 HDL Cholesterol 32 L LDL/HDL Ratio 2.66 Cholesterol/HDL Ra reyna 4.72 H TSH 11/02/19 11/01/19 11/01/19 04:32 21:09 16:47 WBC 6.0 RBC 3.25 L Hgb 10.6 L Hct 33.2 L MCV 102.2 H MCH 32.6 MCHC 31.9 RDW 13.3 Plt Count 274 MPV 9.3 Neut % (Auto) 52.6 Lymph % (Auto) 33.8 [place] % (Auto) 10.3 Eos % (Auto) 1.8 Baso % (Auto) 1.2 Neut # (Auto) 3.1 Lymph # (Auto) 2.0 [place] # (Auto) 0.6 Eos # (Auto) 0.1 Baso # (Auto) 0.1 Nucleated RBC % (a uto) 0 Nucleated RBCs # 0.0 Sodium Potassium Chloride Carbon Dioxide Anion Gap BUN Creatinine Glucose Estimat Average Gl ucose Hemoglobin A1c Calculated Osmolal ity Calcium Phosphorus Magnesium Total Bilirubin AST ALT Alkaline Phosphata se Troponin I 6 Hour 71.90 H Troponin I Hi Sens Del 3.90 Troponin T Baselin e Troponin T 120 Min [place] 70.02 H Delta Troponin T 2.02 NT-Pro-B Natriuret Pep Total Protein Albumin Globulin Triglycerides Cholesterol LDL Cholesterol, C alc HDL Cholesterol LDL/HDL Ratio Cholesterol/HDL Ra reyna TSH 11/01/19 11/01/19 11/01/19 15:00 15:00 15:00 WBC RBC Hgb Hct MCV MCH MCHC RDW Plt Count MPV Neut % (Auto) Lymph % (Auto) [place] % (Auto) Eos % (Auto) Baso % (Auto) Neut # (Auto) Lymph # (Auto) [place] # (Auto) Eos # (Auto) Baso # (Auto) Nucleated RBC % (a uto) Nucleated RBCs # Sodium Potassium Chloride Carbon Dioxide Anion Gap BUN Creatinine Glucose Estimat Average Gl ucose Hemoglobin A1c Calculated Osmolal ity Calcium Phosphorus Magnesium Total Bilirubin AST ALT Alkaline Phosphata se Troponin I 6 Hour Troponin I Hi Sens Del Troponin T Baselin e 68 H Troponin T 120 Min [place] Delta Troponin T NT-Pro-B Natriuret Pep 1333 H Total Protein Albumin Globulin Triglycerides Cholesterol LDL Cholesterol, C alc HDL Cholesterol LDL/HDL Ratio Cholesterol/HDL Ra reyna TSH 0.88 11/01/19 11/01/19 15:00 15:00 WBC 6.9 RBC 3.19 L Hgb 10.7 L Hct 33.4 L MCV 104.7 H MCH 33.5 MCHC 32.0 RDW 13.5 Plt Count 284 MPV 9.2 Neut % (Auto) 65.8 Lymph % (Auto) 27.3 [place] % (Auto) 5.4 Eos % (Auto) 0.6 Baso % (Auto) 0.6 Neut # (Auto) 4.5 Lymph # (Auto) 1.9 [place] # (Auto) 0.4 Eos # (Auto) 0.0 Baso # (Auto) 0.0 Nucleated RBC % (a uto) 0 Nucleated RBCs # 0.0 Sodium 137 Potassium 4.5 Chloride 100 Carbon Dioxide 22 Anion Gap 19.5 H BUN 11 Creatinine 0.8 Glucose 137 H Estimat Average Gl ucose Hemoglobin A1c Calculated Osmolal ity 282 L Calcium 9.7 Phosphorus Magnesium Total Bilirubin 0.2 AST 25 ALT 20 Alkaline Phosphata se 63 Troponin I 6 Hour Troponin I Hi Sens Del Troponin T Baselin e Troponin T 120 Min [place] Delta Troponin T NT-Pro-B Natriuret Pep Total Protein 6.7 Albumin 3.8 Globulin 2.9 Triglycerides Cholesterol LDL Cholesterol, C alc HDL Cholesterol LDL/HDL Ratio Cholesterol/HDL Ra reyna TSH Vitals: Last Vital Signs Temp 97.9 F 11/02/19 10:38 Pulse 75 11/02/19 10:38 Resp 22 H 11/02/19 10:38 BP 111/70 11/02/19 10:38 Pulse Ox 95 11/02/19 10:38 Discharge Plan Discharge Patient Disposition: Home, Self-Care Condition: Stable Prescriptions: Continued methotrexate sodium 2.5 mg tablet See Rx Instructions PO DAILY RF: 0 aspirin [Adult Low Dose Aspirin] 81 mg tablet,delayed release (DR/EC) 81 mg PO DAILY RF: 0 atenolol 25 mg tablet 25 mg PO DAILY RF: 0 polysaccharide iron complex [Ferrex 150] 150 mg iron capsule 150 mg PO DAILY RF: 0 folic acid 1 mg tablet 1 mg PO DAILY RF: 0 hydrocodone-acetaminophen 10-325 mg tablet 1 tab PO Q6H PRN (Reason: RHEUMATOID ARTHRITIS) RF: 0 lisinopril 2.5 mg tablet 2.5 mg PO DAILY RF: 0 prednisone 5 mg tablet 5 mg PO DAILY RF: 0 alendronate [Fosamax] 70 mg tablet 70 mg PO .once a week 30 Days Qty: 5 RF: 5 Oyster Shell Calcium 500 500 mg calcium (1,250 mg) Tablet 1,000 mg PO DAILY RF: 0 Zoya-Lanta 200-200-20 mg/5 mL Suspension 30 ml PO QID PRN (Reason: Acid Reflux) RF: 0 cholecalciferol (vitamin D3) 50 mcg (2,000 unit) Tablet 50 mcg PO DAILY RF: 0 Discontinued cefdinir 300 mg Capsule 300 mg PO BID RF: 0 Discharge Orders: Discharge Order (Routine); Ordered 11/02/19 Ordered By: Hakan Tompkins Other Ambulatory Orders: CA 2 week event monitor (Routine) Timeframe: 2 Weeks Facility: [facility] - Location: Card[facility] Ordered By: Hakan Tompkins Referrals: Gagandeep Grove MD [Physician] - (You have an appointment [facility] today at 4p.m. to be fitted with an 2 week event moniter. Also, please keep your appointment with Dr. Grove on November 04. If you have any questions or need to reschedule. Please, call ) Yamileth Grove [Primary Care Provider] - 4-7 days (You have an follow-up appointment with Yamileth Grove on November 09 at 10a.m. ) Discharge Diet: Cardiac Discharge Activity: Resume usual activity Patient Instructions: Chest Pain (DC), Chest Pain Stoplight Discharge Date/Time: 11/02/19 15:20 Discharge Attestations Time Spent in Discharge Care*: greater than 30 min Specific Discharge Activities: Specific discharge activities: educating patient, discussing with pcp/other providers, discussing with caseworker/social workers/dc planners, documenting/other paperwork and evaluating patient/reviewing data Status at Discharge: Cognitive status at discharge: cognitively intact , Behavioral status at discharge: cooperative , Functional status at discharge: independent ambulation Overall status at discharge: [facility] [place] Quality Metrics Clinical Quality Measures During this hospital stay, did patient experience: None Coding Level of Care Code Acute Technical Solution Architect for [employer]ing[employer] Fwd Diagnoses Chest pain R07.9 Rheumatoid arthritis with rheumatoid factor M05.9
[2019-11-02 14:11] VITALS: BP 111/70; PULSE 75; RESP 22; TEMP 36.6; O2SAT 95
--- NOTE | 2019-11-02 15:01 | PC.NURSE ---
report called to Constance Fournier RN. no questions at this time. was educated on pt coming back with event monitor placed.
--- NOTE | 2019-11-02 15:02 | PC.NURSE ---
discharge instructions given, pt verbalized an understanding. iv removed, tip intact, pt tolerated well.
--- NOTE | 2019-11-02 15:15 | PC.NURSE ---
pt escorted via wheelchair to have heart monitor placed before leaving the facility. pt checking in with registration at this time.
--- NOTE | 2019-11-02 17:45 | NMCV_ITS ---
NM yaya perf SPECT r/s* [id number] Isa Tompkins Age: 79 Gender: F : 1940 Exam Date: 11/02/2019 17:45 Ordering Phys: Antonio Campbell MD Technologist: WINTER Boyle Exam Location: [facility] Indications: CHEST PAIN STRESS TEST Please see [facility] for full findings IMAGE PROTOCOL Rest/Stress 1 Lexiscan Day Radiopharmaceutical Dose (mCi) Administration Site Administered by Rest: Tc-99m 10.8 IV WINTER Shi Sestamibi Stress:Tc-99m 32.6 IV WINTER Shi Sestamibi Rest: 02-Nov-2019 60 Discovery 630 Stress: 02-Nov-2019 30 Discovery 630 0.4mg Lexiscan. Images obtained in supine and prone position. SPECT RESULTS Technical Quality: Excellent Raw Data Analysis: Normal Image Corrections: No attenuation or motion correction applied Summed Stress Score: 3 Summed Rest Score: 3 Summed Difference Score: 0 PERFUSION FINDINGS SPECT images demonstrate homogeneous tracer distribution throughout the myocardium. FUNCTIONAL RESULTS (calculated via Gated SPECT) Stress Image LV EF (%): 64 Stress EDV (mL):47 TID: 0.62 Stress ESV (mL):17 FUNCTIONAL FINDINGS: There is normal left ventricular systolic function. IMPRESSIONS Myocardial perfusion imaging is normal and low probability for obstructive coronary disease. EKG segment will documented separately.. Chadwick Gonsales MD (Electronically Signed) Final Date: 02 November 2019 12:45 S
== END 2019-11-02 15:20 | disposition home or self-care (01) ==
LOC: ER 15:21 → CSU 16:52
PROVIDERS: Admitting Provider Family Medicine; Emergency Provider Emergency Medicine; PCP Nurse Practitioner Family; Visit Provider Student in an Organized Health Care Education/Training Program
DX: I45.10 Unspecified right bundle-branch block (principal); E78.5 Hyperlipidemia, unspecified; Z86.79 Personal history of other diseases of the circulatory system; M05.9 Rheumatoid arthritis with rheumatoid factor, unspecified; I10 Essential (primary) hypertension; Z79.82 Long term (current) use of aspirin; Z79.52 Long term (current) use of systemic steroids; M06.9 Rheumatoid arthritis, unspecified; Z79.891 Long term (current) use of opiate analgesic
CPT/HCPCS: 12345; 36415; 71045; 78452; 80053; 80061; 83036; 83735; 83880; 84100; 84443; 84484; 85025; 93005; 93017; 93306; 94664; 96372; 96374; 97161; 99283; 99285; A9500; G0378; J0280; J1650; J2785; J7512

== ENCOUNTER → 2020-04-21 11:39 | Outpatient (BNVA) | payer MEDICARE, MEDICAID, SELFPAY | PROVIDERS: PCP Nurse Practitioner Family; Visit Provider Nurse Practitioner Family | DX: M79.621 Pain in right upper arm (principal) | CPT/HCPCS: 73030 ==

== ENCOUNTER 2020-05-08 16:04 | Observation (INO) | payer MEDICARE, MEDICAID, SELFPAY ==
[2020-05-08] VITALS (8 sets, daily range): BP systolic 162–184; BP diastolic 82–97; PULSE 64–88; RESP 16–19; TEMP 36.4–37.1; O2SAT 96–97; BMI 23.3
--- NOTE | 2020-05-08 14:23 | W.ED.COVID ---
HPI - COVID General: Chief Complaint: Infusion Bamlanivimab Stated Complaint: POSITIVE WITH COVID, COUGH Time Seen by Provider: 05/08/20 14:21 History of Present Illness: HPI Narrative: 79-year-old female brought in from assisted living. She was diagnosed to 3 days ago with Covid on a rapid positive antigen test for which they provided documentation. She has a history of rheumatoid arthritis and is on methotrexate. Her provider directed her to the emergency room for monoclonal antibody infusion. MD complaint: known COVID positive Prior covid testing: yes, results known COVID 19 common symptoms: positive cough; negative fever(s), chills, non-productive cough, productive cough, dyspnea, fatigue, body aches, nausea, vomiting or diarrhea COVID 19 other sytmptoms: negative chest pain or requiring oxygen Onset (ago): day(s) (4) Severity: mild Pertinent comorbid conditions: immunocompromised state (Rheumatoid arthritis on methotrexate) COVID Results: No Data to Display Review of Systems Const: Denies: fever(s), chills, body aches, change in appetite, fatigue or malaise Card: Denies: chest pain, edema, dyspnea on exertion or orthopnea Resp: Denies: dyspnea, productive cough or non-productive cough GI: Denies: abdominal pain, nausea, vomiting, hematemesis, coffee ground emesis, diarrhea, constipation, bloating, hematochezia or melena : Denies: flank pain, difficulty voiding, dysuria, urinary frequency or urinary urgency PFS ED PFSH: Medical History (Updated 05/08/20 @ 14:33 by Jamel Shipley DO) Atrial fibrillation He has a history of prolonged bleeding and for that reason, was taken off the Coumadin, in the past Cardiomyopathy CHF (congestive heart failure) Current chronic use of systemic steroids High risk medication use Hyperlipidemia Hypertension Immunization counseling Mitral valve regurgitation Osteoporosis screening Rheumatoid arthritis with rheumatoid factor Surgical History History of hysterectomy Family History Father Myocardial infarction Daughter Diabetes Brother Cancer CHF (congestive heart failure) Denies family history of Rheumatoid arthritis Lupus Social History Smoking and tobacco status: never smoked Alcohol intake: never Physical Exam Const: COMMON NORMALS: no acute distress GENERAL APPEARANCE: cooperative and comfortable ORIENTATION/CONSCIOUSNESS: Yes awake, Yes oriented to person, Yes oriented to place and Yes oriented to time HENMT: COMMON NORMALS: normocephalic, atraumatic and hearing grossly normal bilaterally HEAD & SCALP: normocephalic and atraumatic Eye: COMMON NORMALS: Equal, round and reactive pupils present, EOMs intact bilaterally, conjunctivae normal and no scleral icterus CONJUNCTIVA: Yes conjunctivae normal PUPIL: Yes Equal, round and reactive pupils present Neck/C-Spine: COMMON NORMALS: no JVD Resp: COMMON NORMALS: normal respiratory effort, No retractions, No use of accessory muscles and clear to auscultation bilaterally AUSCULTATION: clear to auscultation bilaterally Cardio: COMMON NORMALS: no JVD, regular rate, regular rhythm and No murmurs present (Cardio) RATE: regular rate RHYTHM: regular rhythm Extremity: COMMON NORMALS: normal to inspection, capillary refill normal, no clubbing, cyanosis or edema, no calf tenderness and no pedal edema Neuro: SENSORIUM/ORIENTATION: Yes oriented to person, Yes oriented to place and Yes oriented to time Skin: COMMON NORMALS: no rashes or lesions noted GENERAL SKIN EXAM: no rashes or lesions noted Course Vital Signs: Vital signs: Vital Signs Temperature 97.8 F 05/08/20 19:46 Pulse Rate 73 05/08/20 19:46 Respiratory Rate 17 05/08/20 19:46 Blood Pressure 182/84 05/08/20 19:46 Pulse Oximetry 97 05/08/20 19:46 MDM - COVID MDM Narrative: Medical decision making narrative: Patient tested +3 days ago. Primary care physician sent her to the emergency room via ambulance asking for the and monoclonal antibody infusion. She does meet FDA criteria we will go ahead and infuse she is awake and alert and able answer all questions we discussed the risks and benefits the fact that it is an emergency authorization use drug. She has been given information sheets and wishes to proceed with the infusion. She has signed consent she will be brought to outpatient a bed status on the floor and infused. COVID Results: No Data to Display Bamlanivimab Consideration Inclusion/Exclusion Criteria age >/= 65 and weight >/= 40kg positive rapid antigent test other site receiving immunosuppressive treatment and hypertension not requiring hospitalization, not requiring oxygen (if not chronically on oxygen) and no increase oxygen requirement (if chronically on oxygen) Patient education Bamlanivimab education: patient/family/caregiver received/reviewed fact sheet, Emergency Use Authorization/unapproved drug status discussed with patient/family/caregiver, alternatives to this treatment discussed with patient/family/caregiver, risks and benefits of medication reviewed with patient/family/caregiver, patient/family/caregiver given opportunity for questions, which were answered and patient consents to receiving Bamlanivimab Plan for treatment Meets criteria for BAM infusion Discharge Plan Discharge Patient Disposition: Home Condition: Stable Prescriptions: No Action methotrexate sodium 2.5 mg tablet See Rx Instructions PO DAILY RF: 0 aspirin [Adult Low Dose Aspirin] 81 mg tablet,delayed release (DR/EC) 81 mg PO DAILY RF: 0 atenolol 25 mg tablet 25 mg PO DAILY RF: 0 polysaccharide iron complex [Ferrex 150] 150 mg iron capsule 150 mg PO DAILY RF: 0 folic acid 1 mg tablet 1 mg PO DAILY RF: 0 hydrocodone-acetaminophen 10-325 mg tablet 1 tab PO Q6H PRN (Reason: RHEUMATOID ARTHRITIS) RF: 0 lisinopril 2.5 mg tablet 2.5 mg PO DAILY RF: 0 prednisone 5 mg tablet 5 mg PO DAILY RF: 0 alendronate [Fosamax] 70 mg tablet 70 mg PO .once a week 30 Days Qty: 5 RF: 5 Oyster Shell Calcium 500 500 mg calcium (1,250 mg) Tablet 1,000 mg PO DAILY RF: 0 Zoya-Lanta 200-200-20 mg/5 mL Suspension 30 ml PO QID PRN (Reason: Acid Reflux) RF: 0 cholecalciferol (vitamin D3) 50 mcg (2,000 unit) Tablet 50 mcg PO DAILY RF: 0 Discharge Orders: Discharge Order (Routine); Ordered 05/09/20 Ordered By: Jamel Shipley Referrals: Yamileth Grove [Primary Care Provider] - Coding Level of Care Code ED Child Care Associate Teacher for Chg Fwd Exam Comprehensive
--- NOTE | 2020-05-10 14:36 | PC.SOCIAL ---
Addendum entered by Dawna Merino 05/18/20 15:03: it application development manager called patient after 10 days after receiving BAM - patient stated that she is feeling really good, she has not been admitted anywhere. Addendum entered by Dawna Merino 05/11/20 15:38: 05.11.20 - feeling much better has improvement - still has cough Addendum entered by Dawna Merino 05/11/20 15:38: 05.11.20 - follow up appointment scheduled for Wednesday, May 13, 2020 at 9:50 with Yamileth Grove - rn case management called patient with appointment information Original Note: Patient tolerated transfusion well. She indicates cough was main symptom which is still present but improved. Has been afebrile. She will need appt with PCP in about 5 days. 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
== END 2020-05-08 19:35 | disposition home or self-care (01) ==
PROVIDERS: Admitting Provider Internal Medicine; PCP Nurse Practitioner Family; Visit Provider Internal Medicine
DX: U07.1 COVID-19 (principal); M06.9 Rheumatoid arthritis, unspecified; I48.91 Unspecified atrial fibrillation; E78.5 Hyperlipidemia, unspecified; I11.0 Hypertensive heart disease with heart failure; I50.9 Heart failure, unspecified; Z82.49 Family history of ischemic heart disease and other diseases of the circulatory system
CPT/HCPCS: 12345; 99283; G0378; J7050

== ENCOUNTER → 2021-03-21 09:19 | Outpatient (BNVA) | payer MEDICARE, MEDICAID, SELFPAY | PROVIDERS: PCP Nurse Practitioner Family; Visit Provider Internal Medicine Rheumatology | DX: M05.9 Rheumatoid arthritis with rheumatoid factor, unspecified (principal); M19.90 Unspecified osteoarthritis, unspecified site; M81.0 Age-related osteoporosis without current pathological fracture; Z79.899 Other long term (current) drug therapy; Z79.52 Long term (current) use of systemic steroids; Z71.85 Encounter for immunization safety counseling | CPT/HCPCS: 36415; 80076; 82306; 82310; 82565; 85025; 86140; 99214 ==

== ENCOUNTER → 2021-08-02 11:34 | Outpatient (BNVA) | payer MEDICARE, MEDICAID, SELFPAY | PROVIDERS: PCP Nurse Practitioner Family; Visit Provider Internal Medicine Rheumatology | DX: M05.9 Rheumatoid arthritis with rheumatoid factor, unspecified (principal); M81.0 Age-related osteoporosis without current pathological fracture; Z79.899 Other long term (current) drug therapy; Z79.52 Long term (current) use of systemic steroids; Z71.85 Encounter for immunization safety counseling | CPT/HCPCS: 99214 ==

== ENCOUNTER → 2021-08-08 15:35 | Outpatient (BNVA) | payer MEDICARE, MEDICAID, SELFPAY | PROVIDERS: PCP Nurse Practitioner Family; Visit Provider Internal Medicine Cardiovascular Disease | DX: I34.0 Nonrheumatic mitral (valve) insufficiency (principal); I48.21 Permanent atrial fibrillation; I11.0 Hypertensive heart disease with heart failure; I50.32 Chronic diastolic (congestive) heart failure | CPT/HCPCS: 99214 ==

== ENCOUNTER → 2021-10-25 14:11 | Outpatient (BNVA) | payer MEDICARE, MEDICAID, SELFPAY | PROVIDERS: PCP Nurse Practitioner Family; Visit Provider Internal Medicine Rheumatology | DX: M05.9 Rheumatoid arthritis with rheumatoid factor, unspecified (principal); M19.90 Unspecified osteoarthritis, unspecified site; Z79.899 Other long term (current) drug therapy; M81.0 Age-related osteoporosis without current pathological fracture; Z71.85 Encounter for immunization safety counseling; Z79.52 Long term (current) use of systemic steroids | CPT/HCPCS: 99214 ==

== ENCOUNTER → 2022-02-12 09:49 | Outpatient (BNVA) | payer MEDICARE, MEDICAID, SELFPAY | PROVIDERS: PCP Nurse Practitioner Family; Visit Provider Nurse Practitioner Family | DX: I96 Gangrene, not elsewhere classified (principal); L89.892 Pressure ulcer of other site, stage 2 | CPT/HCPCS: 11042; 99213; A6021 ==

== ENCOUNTER → 2022-02-14 13:46 | Outpatient (BNVA) | payer MEDICARE, MEDICAID, SELFPAY | PROVIDERS: PCP Nurse Practitioner Family; Visit Provider Internal Medicine Rheumatology | DX: M05.9 Rheumatoid arthritis with rheumatoid factor, unspecified (principal); Z79.899 Other long term (current) drug therapy; M81.0 Age-related osteoporosis without current pathological fracture; Z71.85 Encounter for immunization safety counseling; Z79.52 Long term (current) use of systemic steroids; M19.90 Unspecified osteoarthritis, unspecified site | CPT/HCPCS: 99214 ==

== ENCOUNTER → 2022-03-19 10:21 | Outpatient (BNVA) | payer MEDICARE, MEDICAID, SELFPAY | PROVIDERS: PCP Nurse Practitioner Family; Visit Provider Nurse Practitioner Family | DX: I48.21 Permanent atrial fibrillation (principal); I11.0 Hypertensive heart disease with heart failure; I50.32 Chronic diastolic (congestive) heart failure | CPT/HCPCS: 99214 ==

== ENCOUNTER → 2022-05-24 13:14 | Outpatient (BNVA) | payer MEDICARE, MEDICAID, SELFPAY | PROVIDERS: PCP Nurse Practitioner Family; Visit Provider Thoracic Surgery (Cardiothoracic Vascular Surgery) | DX: Z09 Encounter for follow-up examination after completed treatment for conditions other than malignant neoplasm (principal) | CPT/HCPCS: 99212 ==

== ENCOUNTER → 2022-06-19 09:37 | Outpatient (BNVA) | payer MEDICARE, MEDICAID, SELFPAY | PROVIDERS: PCP Nurse Practitioner Family; Visit Provider Internal Medicine Rheumatology | DX: Z79.899 Other long term (current) drug therapy (principal); Z71.85 Encounter for immunization safety counseling; M81.0 Age-related osteoporosis without current pathological fracture; M05.9 Rheumatoid arthritis with rheumatoid factor, unspecified | CPT/HCPCS: 99214 ==

== ENCOUNTER → 2022-07-30 14:10 | Outpatient (BNVA) | payer MEDICARE, MEDICAID, SELFPAY | PROVIDERS: PCP Nurse Practitioner Family; Visit Provider Podiatrist Foot & Ankle Surgery | DX: L02.619 Cutaneous abscess of unspecified foot (principal); L02.612 Cutaneous abscess of left foot; M20.41 Other hammer toe(s) (acquired), right foot; M20.42 Other hammer toe(s) (acquired), left foot; L84 Corns and callosities; M05.9 Rheumatoid arthritis with rheumatoid factor, unspecified | CPT/HCPCS: 10060; 87070; 87075; 87077; 87186; 87205; 99204 ==

== ENCOUNTER → 2022-08-21 15:18 | Outpatient (BNVA) | payer MEDICARE, MEDICAID, SELFPAY | PROVIDERS: PCP Nurse Practitioner Family; Visit Provider Podiatrist Foot & Ankle Surgery | DX: L02.612 Cutaneous abscess of left foot (principal); M20.41 Other hammer toe(s) (acquired), right foot; M20.42 Other hammer toe(s) (acquired), left foot; L84 Corns and callosities; M05.9 Rheumatoid arthritis with rheumatoid factor, unspecified | CPT/HCPCS: 99213 ==

== ENCOUNTER 2022-09-01 05:33 | Emergency (ER) | payer MEDICARE, MEDICAID, SELFPAY ==
[2022-09-01 05:35] VITALS: BP 174/99; PULSE 91; RESP 18; TEMP 36.9; O2SAT 95; BMI 22.8
--- NOTE | 2022-09-01 05:45 | ED_ITS ---
HPI - Fall General: Chief Complaint: Fall Stated Complaint: FALL Time Seen by Provider: 09/01/22 05:41 Source: patient Mode of arrival: EMS Limitations: no limitations History of Present Illness: Mrs. Tompkins is an 81-year-old female who resides in a assisted living facility. She was in her normal state of health until this morning on her way to the bathroom. She states that her walker tipped over and she fell with it striking her face head and left shoulder on the floor. She complains of facial and head pain on the left as well as shoulder pain. No other injuries. Her vision is normal she says in the left eye MD complaint: fall Onset (ago): minute(s) Fall from: standing Fall witnessed: no Place fall occurred: home Loss of consciousness: None Prolonged down time: no Symptoms prior to fall: none Context: tripped/slipped Location of injury: head and face Location of injury - extremities: Left: shoulder and thigh [facility] PFSH: Medical History Atrial fibrillation She has a history of prolonged bleeding and for that reason, was taken off the Coumadin, in the past Cardiomyopathy CHF (congestive heart failure) Current chronic use of systemic steroids High risk medication use Hyperlipidemia Hypertension Immunization counseling Immunization counseling Mitral valve regurgitation Osteoporosis Osteoporosis screening Post-menopausal osteoporosis Rheumatoid arthritis with rheumatoid factor Surgical History History of hysterectomy Family History Father Myocardial infarction CAD (coronary artery disease) Daughter Diabetes Brother Cancer CHF (congestive heart failure) CAD (coronary artery disease) Sister CAD (coronary artery disease) Cancer Mother Stroke Denies family history of Rheumatoid arthritis Lupus Clotting disorder Dementia Chronic kidney disease (CKD) Suicide Anesthesia complication Bleeding disorder Lung disease Social History Smoking and tobacco status: never smoked Alcohol intake: never Physical Exam Const: COMMON NORMALS: no acute distress GENERAL APPEARANCE: cooperative and frail appearing ORIENTATION/CONSCIOUSNESS: Yes awake, Yes oriented to person and Yes oriented to place HENMT: COMMON NORMALS: normocephalic and Normal external nose present HEAD & SCALP: normocephalic FACE & SINUS: abrasion, ecchymosis and edema NOSE: Normal external nose present and Normal nares present OTHER: Large area of periorbital and temporal ecchymosis on the left. She has some swelling. There is no deformity. Extraocular muscles are intact. There is no vision change in the left eye Eye: COMMON NORMALS: Equal, round and reactive pupils present and EOMs intact bilaterally PUPIL: Yes Equal, round and reactive pupils present Neck/C-Spine: GENERAL: Yes trachea midline Chest: CHEST: Yes Symmetrical chest wall rise Resp: COMMON NORMALS: normal respiratory effort and No use of accessory muscles Cardio: COMMON NORMALS: regular rate and regular rhythm RATE: regular rate RHYTHM: regular rhythm GI: COMMON NORMALS: Soft to palpation and non-tender PALPATION: Yes Soft to palpation Back/Pelvis: OTHER: No cervical spine tenderness. No definite thoracic or lumbar tenderness. Extremity: NARRATIVE EXTREMITY EXAM: Left shoulder reveals tenderness over the lateral shoulder. No deformity. There is some pain with movement. Left distal thigh hematoma is present. There is no deformity of the thigh or knee. Hematoma is tender. Neuro: SENSORIUM/ORIENTATION: Yes oriented to person and Yes oriented to place Course Vital Signs: Vital signs: Vital Signs Temperature 98.4 F 09/01/22 05:35 Pulse Rate 87 09/01/22 10:38 Respiratory Rate 16 09/01/22 10:38 Blood Pressure 141/82 09/01/22 10:38 Pulse Oximetry 98 09/01/22 10:38 Oxygen Delivery Me thod 09/01/22 06:25 MDM - Fall Medical Decision Making CT of the face, head, and cervical spine are negative for fracture hemorrhage, etc. Facial abrasions or not repairable by suture. Patient was counseled on her diagnosis. X-ray of the left shoulder shows significant degenerative change without fracture.X-ray of the femur, done because of swelling to the distal anterior lateral thigh, is also negative for fracture. There is a hematoma in the area. She was counseled on findings. Lab Data Radiology Impressions Cervical Spine CT 09/01/22 05:48 IMPRESSION: 1. No acute cervical spine fracture. 2. Severe cervical spondylosis as described above. COMMENTS: Consistent with the [employer]'s Incidental Findings Committee white paper (J Am Itz Radiol 2015): In patients aged 35 years and older with an incidental thyroid nodule equal to or greater than 1.[address], MRI or extrathyroidal US, further evaluation with dedicated thyroid US is recommended for patients with normal life expectancy and without comorbidities. For smaller nodules without suspicious features, no further evaluation or follow up is recommended. Face CT 09/01/22 05:48 IMPRESSION: 1. No acute fracture or dislocation. 2. Left temporal and left facial soft tissue swelling/hematoma. 3. Degenerative changes of the right temporomandibular joint. Moderate degenerative changes of the left temporomandibular joint. Head CT 09/01/22 05:48 IMPRESSION: 1. No acute intracranial findings. 2. Other chronic/incidental findings as described above. Shoulder X-Ray 09/01/22 05:48 IMPRESSION: 1. No fracture or dislocation identified. 2. Degenerative changes in the left shoulder joint worsened compared to prior exam. Femur X-Ray 09/01/22 07:00 IMPRESSION: 1. Well corticated fragmentation of the patella, suggestive of type III bipartite patella. Correlation for point tenderness is recommended. 2. Moderate osteoarthrosis of the left knee. Discharge Plan Discharge Patient Disposition: Home Clinical Impression: Facial contusion, Contusion of left thigh, Contusion of left shoulder Condition: Stable Prescriptions: No Action aspirin [Adult Low Dose Aspirin] 81 mg tablet,delayed release (DR/EC) 81 mg PO DAILY Rx Instructions: CONFIRMED BY MAR SENT WITH PT. atenolol 25 mg tablet 25 mg PO DAILY Rx Instructions: CONFIRMED BY MAR SENT WITH PT. polysaccharide iron complex [Ferrex 150] 150 mg iron capsule 150 mg PO DAILY Rx Instructions: CONFIRMED BY MAR SENT WITH PT. lisinopril 2.5 mg tablet 2.5 mg PO DAILY Rx Instructions: CONFIRMED BY MAR SENT WITH PT. polyvinyl alcohol [Artificial Tears (polyvin alc)] 1.4 % drops 2 drp ophthalmic (eye) TID tramadol 50 mg tablet 50 mg PO Q6H PRN cholecalciferol (vitamin D3) 50 mcg (2,000 unit) tablet 50 mcg PO DAILY Qty: 90 1RF Rx Instructions: CONFIRMED BY MAR SENT WITH PT. diclofenac sodium 1 % gel 2 g topical QID Qty: 100 2RF Rx Instructions: apply to affected area as needed folic acid 1 mg tablet 1 mg PO DAILY Qty: 90 3RF Rx Instructions: CONFIRMED BY MAR SENT WITH PT. ascorbic acid (vitamin C) 1,000 mg tablet 1 g PO DAILY loratadine [Claritin] 10 mg tablet 10 mg PO DAILY zinc gluconate 50 mg tablet 50 mg PO DAILY hydrocodone-acetaminophen 10-325 mg tablet 1 tab PO BID PRN baclofen 10 mg tablet 10 mg PO DAILY lorazepam 0.5 mg tablet 0.5 mg PO BID PRN cetirizine 10 mg tablet 10 mg PO DAILY PRN methotrexate sodium 2.5 mg tablet See Rx Instructions PO .week Qty: 120 0RF Rx Instructions: Split dose.. take 4 tabs in the AM and 4 tabs in the PM on the same day once a week prednisone 2.5 mg tablet 2.5 mg PO DAILY Qty: 90 1RF Oyster Shell Calcium 500 500 mg calcium (1,250 mg) Tablet 1,000 mg PO DAILY Rx Instructions: CONFIRMED BY MAR SENT WITH PT. Zoya-Lanta 200-200-20 mg/5 mL Suspension 30 ml PO QID PRN (Reason: Acid Reflux) Rx Instructions: CONFIRMED BY MAR SENT WITH PT. Discharge Orders: Discharge ED (Routine); Ordered 09/01/22 Ordered By: Jaime Elizabeth Referrals: [facility] [Primary Care Provider] - Patient Instructions: Contusion in Adults (ED), Facial Contusion (ED), Opioid Safety, Pain Management Activity Restrictions/Additional Instructions: You may clean face with soap and running water. Ice for swelling will help, especially to the thigh and face. Return for worsening pain despite treatment, any other concerns. Use prescribed hydrocodone for pain as needed. Coding Level of Care Code ED Booth Operator for Shannon Mosley
--- NOTE | 2022-09-01 05:48 | CTR_ITS ---
PROCEDURE INFORMATION: Exam: CT Head Without Contrast Exam date and time: 09/01/2022 6:04 AM Age: 81 years old Clinical indication: Injury or trauma; Fall; Blunt trauma (contusions or hematomas); Additional info: Fall head injury TECHNIQUE: Imaging protocol: Computed tomography of the head without contrast. Radiation optimization: All CT scans at this facility use at least one of these dose optimization techniques: automated exposure control; mA and/or kV adjustment per patient size (includes targeted exams where dose is matched to clinical indication); or iterative reconstruction. REPORTING DATA: Count of CT and Cardiac NM exams in prior 12 months: This patient has received 2 known CTs and 0 known cardiac nuclear medicine studies in the 12 months prior to the current study. COMPARISON: No relevant prior studies available. RADIATION DOSE METRICS: Total DLP (mGy-cm): 1224.98 FINDINGS: Brain: No acute intracranial hemorrhage, abnormal extra-axial fluid collection, mass effect, or midline shift. Periventricular and subcortical white matter hypodensities compatible with changes of moderate burden chronic small-vessel disease Cerebral ventricles: The ventricular system is within normal limits of variation for the patient's age. Paranasal sinuses: Visualized paranasal sinuses are grossly unremarkable. No fluid levels. Mastoid air cells: Visualized mastoid air cells are well aerated. Bones/joints: No acute fracture. Soft tissues: Left lateral forehead and left face moderate soft tissue swelling/hematoma. Vasculature: Atheromatous changes are seen within the bilateral carotid siphons and V4 segments of the bilateral vertebral arteries. CT/CT head wo con* [id number] IMPRESSION: 1. No acute intracranial findings. 2. Other chronic/incidental findings as described above.
--- NOTE | 2022-09-01 05:48 | CTR_ITS ---
PROCEDURE INFORMATION: Exam: CT Maxillofacial Without Contrast Exam date and time: 09/01/2022 6:08 AM Age: 81 years old Clinical indication: Injury or trauma; Fall; Blunt trauma (contusions or hematomas); Cheek bone and orbit/periorbital and maxilla and jaw; Left; Additional info: Fall left facial injury TECHNIQUE: Imaging protocol: Computed tomography of the face without contrast. Radiation optimization: All CT scans at this facility use at least one of these dose optimization techniques: automated exposure control; mA and/or kV adjustment per patient size (includes targeted exams where dose is matched to clinical indication); or iterative reconstruction. REPORTING DATA: Count of CT and Cardiac NM exams in prior 12 months: This patient has received 2 known CTs and 0 known cardiac nuclear medicine studies in the 12 months prior to the current study. COMPARISON: CT head wo con* [id number] 09/01/2022 6:04 AM RADIATION DOSE METRICS: Total DLP (mGy-cm): 606.55 FINDINGS: Orbital cavities: Orbits are normal. Globes are unremarkable. Bones/joints: No acute fracture. Severe degenerative changes of the right temporomandibular joint. Moderate degenerative changes of the left temporomandibular joint. Paranasal sinuses: Normal. No air-fluid levels. Soft tissues: Left temporal and left facial soft tissue swelling/hematoma. Vasculature: Atheromatous changes are seen within the bilateral carotid siphons and V4 segments of the bilateral vertebral arteries. CT/CT facial bones wo con* [id number] IMPRESSION: 1. No acute fracture or dislocation. 2. Left temporal and left facial soft tissue swelling/hematoma. 3. Degenerative changes of the right temporomandibular joint. Moderate degenerative changes of the left temporomandibular joint.
--- NOTE | 2022-09-01 05:48 | XRR_ITS ---
PROCEDURE INFORMATION: Exam: XR Left Shoulder Exam date and time: 09/01/2022 5:55 AM Age: 81 years old Clinical indication: Pain; Shoulder; Left; Additional info: Fall left shoulder pain TECHNIQUE: Imaging protocol: Radiologic exam of the left shoulder. Views: 2 or more views. COMPARISON: CR (CHEST, ) 11/01/2019 4:15 PM FINDINGS: Bones/joints: Glenohumeral joint space narrowing with sclerosis. Periarticular calcifications along the lateral margin of the joint. No fracture or dislocation identified. Lungs: Visualized portions of the chest are normal. Soft tissues: Unremarkable. XR/XR shoulder LT min 2V* [id number] IMPRESSION: 1. No fracture or dislocation identified. 2. Degenerative changes in the left shoulder joint worsened compared to prior exam.
--- NOTE | 2022-09-01 05:48 | CTR_ITS ---
PROCEDURE INFORMATION: Exam: CT Cervical Spine Without Contrast Exam date and time: 09/01/2022 6:11 AM Age: 81 years old Clinical indication: Injury or trauma; Fall; Blunt trauma; Additional info: Fall head injury TECHNIQUE: Imaging protocol: Computed tomography of the cervical spine without contrast. Radiation optimization: All CT scans at this facility use at least one of these dose optimization techniques: automated exposure control; mA and/or kV adjustment per patient size (includes targeted exams where dose is matched to clinical indication); or iterative reconstruction. REPORTING DATA: Count of CT and Cardiac NM exams in prior 12 months: This patient has received 2 known CTs and 0 known cardiac nuclear medicine studies in the 12 months prior to the current study. COMPARISON: CT facial bones wo con* [id number] 09/01/2022 6:08 AM RADIATION DOSE METRICS: Total DLP (mGy-cm): 185.56 FINDINGS: Bones/joints: No acute cervical spine fracture. Well corticated lucency extending through the right lateral mass of the C4 vertebral body compatible with sequelae of remote insult and or marked facet arthropathy. Mild grade 1 anterolisthesis of C5 on C6 and C6 on C7 along with multilevel intervertebral disc space narrowing along with posterior disc osteophyte complexes, uncovertebral joint hypertrophic changes, and facet arthropathy appears to result in severe stenosis of the bilateral neural foramina at multiple levels and mild spinal canal stenosis at C5-C6 and C6-C7. Minimal retrolisthesis of C3 in relation to C2 as well as of the ligamentum flavum at C2-C3 appears to result in [id number] spinal canal stenosis at this level. Lungs: Mild biapical atelectasis and/or scarring within the partially imaged lung apices. Thyroid: There is a low attenuating 7 mm nodule at the anterior aspect of the left lobe of the thyroid on series 5, image 68 and likely represents a benign nodule. Vasculature: Atheromatous changes are seen within the aortic arch and its major branching vessels. Atheromatous changes are seen within the bilateral carotid siphons and V4 segments of the bilateral vertebral arteries. Soft tissues: Unremarkable. CT/CT cervical spin wo con* [id number] IMPRESSION: 1. No acute cervical spine fracture. 2. Severe cervical spondylosis as described above. COMMENTS: Consistent with the [employer]'s Incidental Findings Committee white paper (J Am Itz Radiol 2015): In patients aged 35 years and older with an incidental thyroid nodule equal to or greater than 1.[address], MRI or extrathyroidal US, further evaluation with dedicated thyroid US is recommended for patients with normal life expectancy and without comorbidities. For smaller nodules without suspicious features, no further evaluation or follow up is recommended.
[2022-09-01 06:25] VITALS: BP 156/114; PULSE 85; O2SAT 96
--- NOTE | 2022-09-01 07:00 | XRR_ITS ---
PROCEDURE INFORMATION: Exam: XR Left Femur Exam date and time: 09/01/2022 7:05 AM Age: 81 years old Clinical indication: Injury or trauma; Fall; Blunt trauma; Thigh or upper leg; Left; Additional info: Fall thigh injury TECHNIQUE: Imaging protocol: Radiologic exam of the left femur. Views: 2 views. COMPARISON: No relevant prior studies available. FINDINGS: Bones/joints: No fracture or dislocation. There is moderate degenerative changes of the left knee, manifested by joint space narrowing, chondrocalcinosis and periarticular osteophytes. Well corticated fragmentation of the patella, suggestive of type III bipartite patella. Old unfused fracture can have this appearance. Soft tissues: Mild prominence of the soft tissues in the suprapatellar region. XR/XR femur LT min 2V* [id number] IMPRESSION: 1. Well corticated fragmentation of the patella, suggestive of type III bipartite patella. Correlation for point tenderness is recommended. 2. Moderate osteoarthrosis of the left knee.
[2022-09-01 10:38] VITALS: BP 141/82; PULSE 87; RESP 16; O2SAT 98
== END 2022-09-01 10:39 | disposition home or self-care (01) ==
PROVIDERS: Emergency Provider Emergency Medicine; PCP Nurse Practitioner Family
DX: S00.83XA Contusion of other part of head, initial encounter (principal); S70.12XA Contusion of left thigh, initial encounter; S40.012A Contusion of left shoulder, initial encounter; Z79.82 Long term (current) use of aspirin; I11.0 Hypertensive heart disease with heart failure; I50.9 Heart failure, unspecified; E78.5 Hyperlipidemia, unspecified; W18.39XA Other fall on same level, initial encounter; Y92.099 Unspecified place in other non-institutional residence as the place of occurrence of the external cause
CPT/HCPCS: 70450; 70486; 72125; 73030; 73552; 99284

== ENCOUNTER → 2023-01-15 12:55 | Outpatient (BNVA) | payer MEDICARE, MEDICAID, SELFPAY | PROVIDERS: PCP Nurse Practitioner Family; Visit Provider Nurse Practitioner Family | DX: I48.21 Permanent atrial fibrillation (principal); I11.0 Hypertensive heart disease with heart failure; I50.32 Chronic diastolic (congestive) heart failure | CPT/HCPCS: 99214 ==

== ENCOUNTER → 2023-03-14 07:56 | Outpatient (BNVA) | payer MEDICARE, MEDICAID, SELFPAY | PROVIDERS: PCP Nurse Practitioner Family; Visit Provider Nurse Practitioner Family | DX: L89.312 Pressure ulcer of right buttock, stage 2 (principal) | CPT/HCPCS: 97597; 99213; A6212 ==

== ENCOUNTER 2023-06-05 15:33 | Emergency (ER) | payer MEDICARE, MEDICAID, SELFPAY ==
[2023-06-05] VITALS (7 sets, daily range): BP systolic 154–163; BP diastolic 71–92; PULSE 57–90; TEMP 36.8; O2SAT 96–99; BMI 22.1
--- NOTE | 2023-06-05 15:49 | XRR_ITS ---
PROCEDURE INFORMATION: Exam: XR Chest Exam date and time: 06/05/2023 4:00 PM Age: 82 years old Clinical indication: Shortness of breath; Additional info: Shortness of brath TECHNIQUE: Imaging protocol: Radiologic exam of the chest. Views: 1 view. COMPARISON: CR (CHEST, ) 11/01/2019 4:15 PM FINDINGS: Lungs: No consolidation. Pleural spaces: No apparent pleural effusion. No pneumothorax. Heart/Mediastinum: Moderate cardiomegaly, similar to prior study. Bones/joints: Visualized osseous structures are intact. XR/XR chest 1V [id number] IMPRESSION: Moderate cardiomegaly, similar to prior study. No acute findings.
--- NOTE | 2023-06-05 15:49 | ECG_ITS ---
[facility] Test Date: 2023-06-05 Pat Name: Isa Tompkins Department: Room: Gender: Female Crocheter: : 1940 Requested By: Christen Olmedo Order Number: [id number] Sergey MD: Dat Haynes M.D. Measurements Intervals [place] Rate: 91 P: 68 TN: 163 QRS: -64 QRSD: 130 T: 7 QT: 371 QTc: 457 Interpretive Statements SINUS RHYTHM POSSIBLE LEFT ATRIAL ENLARGEMENT [-0.1mV P-WAVE IN V1/V2] RIGHT BUNDLE BRANCH BLOCK [120+ ms QRS DURATION, UPRIGHT V1, 40+ ms S IN I/aVL/V4/V5/V6] LEFT ANTERIOR FASCICULAR BLOCK [QRS AXIS <= -45, QR IN I, RS IN II] Compared to ECG 11/01/2019 20:41:17 Left anterior fascicular block now present Electronically Signed On 06-05-2023 19:00:59 DIRECTOR DECISION SUPPORT by Dat Haynes M.D. [id number]
--- NOTE | 2023-06-05 15:51 | ED_ITS ---
HPI - SOB/Dyspnea 2 General: Chief Complaint: Arrhythmia/Palpitations Stated Complaint: HIGH HEART RATE Time Seen by Provider: 06/05/23 15:46 History of Present Illness: HPI Narrative: 82-year-old female who presents to the e mergency room by ambulance with palpitations/what appeared to be SVT. She says she was about to go to her doctor's appointment that was a regularly scheduled appointment. She lives at an assisted living. She says she became short of breath. She felt like she was having a panic attack. She became diaphoretic. EMS reports heart rate in the 180s and she was given adenosine and converted about 2 minutes after that. They reports she is now in a sinus rhythm. She says she has not been feeling bad. No fevers. No cough. No nausea or vomiting. No abdominal pain. No weakness. No focal motor deficits. Review of Systems 2 Narrative: Constitutional symptoms: Negative except as documented in HPI. Skin symptoms: Negative except as documented in HPI. Eye symptoms: Negative except as documented in HPI. ENMT symptoms: Negative except as documented in HPI. Respiratory symptoms: Negative except as documented in HPI. Cardiovascular symptoms: Negative except as documented in HPI. Gastrointestinal symptoms: Negative except as documented in HPI. Genitourinary symptoms: Negative except as documented in HPI. Musculoskeletal symptoms: Negative except as documented in HPI. Neurologic symptoms: Negative except as documented in HPI. Psychiatric symptoms: Negative except as documented in HPI. Endocrine symptoms: Negative except as documented in HPI. FOR[facility]LY [facility] ED 2 PFSH: Medical History Osteoporosis Immunization counseling Post-menopausal osteoporosis Atrial fibrillation She has a history of prolonged bleeding and for that reason, was taken off the Coumadin, in the past CHF (congestive heart failure) Cardiomyopathy Hypertension Hyperlipidemia Mitral valve regurgitation High risk medication use Immunization counseling Current chronic use of systemic steroids Osteoporosis screening Rheumatoid arthritis with rheumatoid factor Surgical History History of hysterectomy Family History Father Myocardial infarction CAD (coronary artery disease) Daughter Diabetes Brother Cancer CHF (congestive heart failure) CAD (coronary artery disease) Sister CAD (coronary artery disease) Cancer Mother Stroke Denies family history of Rheumatoid arthritis Lupus Clotting disorder Dementia Chronic kidney disease (CKD) Suicide Anesthesia complication Bleeding disorder Lung disease Social History Smoking and tobacco/nicotine status: never used tobacco/nicotine Alcohol intake: never Substance/Drug Use: never Physical Exam 2 Narrative: EXAM NARRATIVE: General: Alert, no acute distress. Skin: Warm, dry. Head: Normocephalic, atraumatic. Neck: Supple, trachea midline. Eye: Extraocular movements are intact. Ears, nose, mouth and throat: mucosa moist. Cardiovascular: Regular, Normal peripheral perfusion. Respiratory: Lungs are clear to auscultation, respirations are non-labored, breath sounds are equal, Symmetrical chest wall expansion. Gastrointestinal: Soft, Nontender, Non distended, Normal bowel sounds. Musculoskeletal: Normal ROM, no deformity. Neurological: Alert and oriented to person, place, time, and situation, No focal neurological deficit observed. Psychiatric: Cooperative, appropriate mood & affect. Course 2 Vital Signs: Vital signs: Vital Signs Temperature 98.2 F 06/05/23 15:45 Pulse Rate 71 06/05/23 20:06 Blood Pressure 156/78 06/05/23 20:06 Pulse Oximetry 97 06/05/23 20:06 Oxygen Delivery Me thod Room Air 06/05/23 20:06 MDM - SOB/Dyspnea Medical Decision Making Patient with what appeared to be SVT versus A-fib with RVR. No known history of A-fib. She has converted. She is now in a sinus rhythm. Will evaluate for underlying pathologies. EKG. Chest x-ray. COVID. Flu. TSH. Magnesium. Urinalysis. CBC. BMP. Patient has known atrial fibrillation, and reviewed the rhythm strip done by EMS. I believe this was a very fast A-fib. Likely secondary to urinary tract infection and some dehydration. Cardiac markers trended are unchanged. EKG shows no ischemic changes. Lab Data 06/05/23 15:51 06/05/23 15:51 Labs/Radiology: Radiology Impressions Chest X-Ray 06/05/23 15:49 IMPRESSION: Moderate cardiomegaly, similar to prior study. No acute findings. Laboratory Results WBC 5.51 10^3/uL (3.29-11.43) 06/05/23 15:51 RBC 3.37 10^6/uL (3.85-5.65) L 06/05/23 15:51 Hgb 11.40 g/dL (11.27-16.99) 06/05/23 15:51 Hct 34.2 % (36-47) L 06/05/23 15:51 MCV 101.5 fl (85-98) H 06/05/23 15:51 MCH 33.8 pg (27-33) H 06/05/23 15:51 MCHC 33.3 g/dL (30-55) 06/05/23 15:51 RDW 14.5 % (12.1-15.1) 06/05/23 15:51 Plt Count 248 10^3/cmm (157-399) 06/05/23 15:51 MPV 9.2 fL (7.4-10.4) 06/05/23 15:51 Neut % (Auto) 65.6 % 06/05/23 15:51 Lymph % (Auto) 22.3 % 06/05/23 15:51 [place] % (Auto) 8.2 % 06/05/23 15:51 Eos % (Auto) 2.4 % 06/05/23 15:51 Baso % (Auto) 1.1 % 06/05/23 15:51 Neut # (Auto) 3.62 10^3/uL (1.8-7.7) 06/05/23 15:51 Lymph # (Auto) 1.2 10^3/uL (0.8-4.8) 06/05/23 15:51 [place] # (Auto) 0.5 10^3/uL (0.2-0.9) 06/05/23 15:51 Eos # (Auto) 0.1 10^3/uL (0.0-0.8) 06/05/23 15:51 Baso # (Auto) 0.1 10^3/uL (0.0-0.1) 06/05/23 15:51 Nucleated RBC % (auto) 0 % 06/05/23 15:51 Nucleated RBCs # 0.0 /100WBC 06/05/23 15:51 Sodium 138 mmol/L (136-145) 06/05/23 15:51 Potassium 3.7 mmol/L (3.5-5.1) 06/05/23 15:51 Chloride 100 mmol/L (98-107) 06/05/23 15:51 Carbon Dioxide 23 mmol/L (22-29) 06/05/23 15:51 Anion Gap 18.7 (5-19) 06/05/23 15:51 BUN 11 mg/dL (8-23) 06/05/23 15:51 Creatinine 0.8 mg/dL (0.5-0.9) 06/05/23 15:51 GFR Calculation Not Reportable 06/05/23 15:51 Glucose 133 mg/dL (65-115) H 06/05/23 15:51 Calculated Osmolality 287 mOsm/kg (285-295) 06/05/23 15:51 Lactic Acid 2.0 mmol/L (0.5-2.2) 06/05/23 16:14 Calcium 9.3 mg/dL (8.5-10.5) 06/05/23 15:51 Magnesium 1.7 mg/dL (1.7-2.3) 06/05/23 15:51 Total Bilirubin 0.3 mg/dL (0.15-1.2) 06/05/23 15:51 AST 19 U/L (0-32) 06/05/23 15:51 ALT 11 U/L (0-33) 06/05/23 15:51 Alkaline Phosphatase 85 U/L (35-105) 06/05/23 15:51 Troponin T Baseline 16 ng/L (0-10) H 06/05/23 15:51 Troponin T 120 Minute 25.43 ng/L (0-10) H 06/05/23 18:26 Delta Troponin T 9.43 ABS# (0-10) 06/05/23 18:26 NT-Pro-B Natriuret Pep 816 pg/mL (0-450) H 06/05/23 15:51 Total Protein 6.7 g/dL (6.6-8.7) 06/05/23 15:51 Albumin 4.0 g/dL (3.5-5.2) 06/05/23 15:51 Globulin 2.7 g/dL (1.3-4.6) 06/05/23 15:51 TSH 0.73 uIU/mL (0.27-4.20) 06/05/23 15:51 Urine Color Yellow (Yellow) 06/05/23 19:29 Urine Appearance Sl hazy (CLEAR) A 06/05/23 19: Urine pH 6.5 (5-7) 06/05/23 19: Ur Specific [place] 1.015 (1.005-1.030) 06/05/23 19: Urine Protein Neg (Negative) 06/05/23 19:29 Urine Glucose (UA) Norm (Normal) 06/05/23 19: Urine Ketones Negative (Negative) 06/05/23 19: Urine Blood 2+ (Negative) H 06/05/23 19: Urine Nitrate Negative (Negative) 06/05/23 19: Urine Bilirubin Neg (Negative) 06/05/23 19: Urine Urobilinogen Norm mg/dL (Negative) 06/05/23 19: Ur Leukocyte Esterase 1+ (Negative) H 06/05/23 19: Urine RBC 0-4 /hpf (0-2) H 06/05/23 19: Urine WBC 5-10 /hpf (0-5) H 06/05/23 19:29 Ur Squamous Epith Cells 0-4 /hpf (0-5) H 06/05/23 19:29 Ur Transition Epith Cell 0-4 /hpf 06/05/23 19: Amorphous Sediment 1+ /hpf 06/05/23 19: Urine Bacteria Trace /hpf (NONE) 06/05/23 19:29 Urine Mucus Trace /hpf 06/05/23 19:29 Influenza Type A Ag Negative (Negative) 06/05/23 18:15 Influenza Type B Ag Negative (Negative) 06/05/23 18:15 SARS-CoV-2 Ag (Rapid) Negative (Negative) 06/05/23 18:15 All radiology interpretation(s) finalized by discharge ED provider radiology interpretation(s): Chest x-ray: No acute process. No pneumothorax. No infiltrate. Stable cardiomegaly. This was reviewed and interpreted by myself the ER physician. EKG Data EKG 1: Other EKG Comments: EKG: Time 1550 p.m. rate 91 normal sinus rhythm, No ST-T changes, no ectopy, normal OH & QRS intervals, This was reviewed and interpreted by myself the ER physician. Other Data - 500 mL normal saline bolus in the emergency room. -IV Rocephin in the emergency room. - Patient has remained in a sinus rhythm while here. Cardiac markers are negative. -Prescriptions electronically sent to her pharmacy. - Discharged home - Discussed findings and plan with patient. Answered any questions. - All laboratory values were reviewed and interpreted personally by myself, the ER physician - All imaging was reviewed and interpreted personally by myself, the ER physician. - Evaluation and treatment of this problem were appropriate in the emergency setting Discharge Plan Discharge Patient Disposition: Home Clinical Impression: Urinary tract infection, Atrial fibrillation with rapid ventricular response Condition: Stable Prescriptions: New cefdinir 300 mg capsule 300 mg PO BID 5 Days Qty: 10 0RF No Action aspirin [Adult Low Dose Aspirin] 81 mg tablet,delayed release (DR/EC) 81 mg PO DAILY atenolol 25 mg tablet 25 mg PO DAILY polysaccharide iron complex [Ferrex 150] 150 mg iron capsule 150 mg PO DAILY lisinopril 2.5 mg tablet 2.5 mg PO DAILY polyvinyl alcohol [Artificial Tears (polyvin alc)] 1.4 % drops 2 drp ophthalmic (eye) TID PRN (Reason: Dry Eyes) tramadol 50 mg tablet 50 mg PO Q6H PRN (Reason: Breakthrough Pain) cholecalciferol (vitamin D3) 50 mcg (2,000 unit) tablet 50 mcg PO DAILY Qty: 90 1RF folic acid 1 mg tablet 1 mg PO DAILY Qty: 90 3RF hydrocodone-acetaminophen 10-325 mg tablet 1 tab PO Q6H PRN (Reason: Pain) baclofen 10 mg tablet 5 mg PO TID PRN (Reason: neck pain) lorazepam 0.5 mg tablet 0.5 mg PO BID PRN (Reason: Anxiety) cetirizine 10 mg tablet 10 mg PO DAILY methotrexate sodium 2.5 mg tablet See Rx Instructions PO .week Qty: 120 0RF Rx Instructions: Split dose.. Take 4 tablets by mouth twice daily every week on Saturday. omeprazole 20 mg capsule,delayed release(DR/EC) 20 mg PO DAILY PRN (Reason: Acid Reflux) cyanocobalamin (vitamin B-12) 1,000 mcg/mL solution See Rx Instructions IM .COMPLEX Rx Instructions: Inject 1 ml (1000 mcg) im every 14 days on Saturday. calcium carbonate [Oyster Shell Calcium 500] 500 mg calcium (1,250 mg) Tablet 1,000 mg PO DAILY prednisone 5 mg tablet 2.5 mg PO DAILY acetaminophen 500 mg Tablet See Rx Instructions .ROUTE .COMPLEX PRN (Reason: Pain) Rx Instructions: Take 500 mg orally every 4 to 6 hours as needed for pain. Benadryl Allergy 25 mg Tablet 25 mg PO TID PRN (Reason: allergies) diclofenac sodium 1 % gel See Rx Instructions .ROUTE .COMPLEX Rx Instructions: Apply toically to hands and knees twice daily for joint pain. Discharge Orders: Discharge ED (Routine); Ordered 06/05/23 Ordered By: Christen Negro Referrals: Yam[facility] [Primary Care Provider] - 4-7 days (You have been screened and evaluated and felt safe for discharge. Health conditions do change or evolve sometimes and as such it is important that you follow up with your Primary Doctor to be re checked, 3-5 days is a general good time frame for follow up. You are always welcome to return to the ED for re assessment if your symptoms are worsening or you have new concerns) Discharge Diet: Usual diet Discharge Activity: Resume usual activity Patient Instructions: Opioid Safety, Pain Management Coding Level of Care Code ED [employer] for Shannon Mosley
[2023-06-05 16:10] LABS: Basophils # 0.1 10^3/uL (0.0-0.1); Basophils % 1.1 %; Eosinophils # 0.1 10^3/uL (0.0-0.8); Eosinophils % 2.4 %; Hematocrit 34.2 % (36-47); Lymphocytes # 1.2 10^3/uL (0.8-4.8); Lymphocytes % 22.3 %; Mean Corpuscular HGB Conc 33.3 g/dL (30-55); Mean Corpuscular Hemoglobin 33.8 pg (27-33); Mean Corpuscular Volume 101.5 fl (85-98); Mean Platelet Volume 9.2 fL (7.4-10.4); Monocytes # 0.5 10^3/uL (0.2-0.9); Monocytes % 8.2 %; Neutrophils # 3.62 10^3/uL (1.8-7.7); Neutrophils % 65.6 %; Nucleated Red Blood Cells % 0 %; Platelet Count 248 10^3/cmm (157-399); Red Blood Count 3.37 10^6/uL (3.85-5.65); Red Cell Distribution Width 14.5 % (12.1-15.1); White Blood Count 5.51 10^3/uL (3.29-11.43)
[2023-06-05 16:41] LABS: Troponin(5th) Baseline 16 ng/L (0-10)
[2023-06-05 16:50] LABS: Alanine Aminotransferase 11 U/L (0-33); Alkaline Phosphatase 85 U/L (35-105); Anion Gap 18.7 (5-19); Aspartate Amino Transferase 19 U/L (0-32); Blood Urea Nitrogen 11 mg/dL (8-23); Calcium 9.3 mg/dL (8.5-10.5); Carbon Dioxide 23 mmol/L (22-29); Chloride 100 mmol/L (98-107); Globulin 2.7 g/dL (1.3-4.6); Glucose 133 mg/dL (65-115); Magnesium 1.7 mg/dL (1.7-2.3); NT Pro B Type Natriuretic Pept 816 pg/mL (0-450); Osmolality Calculated 287 mOsm/kg (285-295); Potassium 3.7 mmol/L (3.5-5.1); Sodium 138 mmol/L (136-145); Thyroid Stimulating Hormone 0.73 uIU/mL (0.27-4.20); Total Bilirubin 0.3 mg/dL (0.15-1.2); Total Protein 6.7 g/dL (6.6-8.7)
--- NOTE | 2023-06-05 17:50 | ECG_ITS ---
[facility] Test Date: 2023-06-05 Pat Name: Isa Tompkins Department: Room: Gender: Female [employer] Fre[employer] Agent: : [id number] Requested By: Christen Olmedo Order Number: [id number] Sergey MD: Dat Haynes M.D. Measurements Intervals [place] Rate: 70 P: 66 SD: 156 QRS: -52 QRSD: 138 T: -19 QT: 413 QTc: 448 Interpretive Statements SINUS RHYTHM POSSIBLE LEFT ATRIAL ENLARGEMENT [-0.1mV P-WAVE IN V1/V2] RIGHT BUNDLE BRANCH BLOCK [120+ ms QRS DURATION, UPRIGHT V1, 40+ ms S IN I/aVL/V4/V5/V6] LEFT ANTERIOR FASCICULAR BLOCK [QRS AXIS <= -45, QR IN I, RS IN II] Compared to ECG 06/05/2023 15:50:26 No significant changes Electronically Signed On 06-05-2023 19:01:58 LEATHER CUTTER by Dat Haynes M.D. [email or web address]
[2023-06-05 18:50] LABS: Troponin 5 2HR 25.43 ng/L (0-10); Troponin 5 2HR Delta 9.43 ABS# (0-10)
[2023-06-05 19:00] LABS: SARS Covid-2 Antigen Negative (Negative)
[2023-06-05 19:49] LABS: Specific Gravity, Urine 1.015 (1.005-1.030); Urine Appearance SL Hazy (CLEAR); Urine Color Yellow (Yellow); pH Urine 6.5 (5-7)
[2023-06-05 19:50] LABS: Bilirubin Urine Neg (Negative); Blood Urine 2+ (Negative); Glucose Urine UA Norm (Normal); Ketones Urine Negative (Negative); Leukocyte Esterase Urine 1+ (Negative); Nitrate Urine Negative (Negative); Protein Urine Neg (Negative); Urobilinogen Urine Norm (Negative)
[2023-06-05 20:06] LABS: Amorphous Sediment Urine 1+ /hpf; Bacteria Urine TRACE /hpf; Mucus Urine TRACE /hpf; RBC Urine 0-4 /hpf (0-2); Squamous Epithelial Cell Urine 0-4 /hpf (0-5); Transitional Epi Cells Urine 0-4 /hpf
[2023-06-05 20:07] LABS: Add Urine Culture? Yes
[2023-06-05 20:39] LABS: Influenza A by IFA Negative (Negative); Influenza B by IFA Negative (Negative)
[2023-06-05] MEDS: cefTRIAXone 1,000 MG in sodium chloride 0.9% (plus) 50 ML 100 MG IV (20:40)
[2023-06-05] MEDS: sodium chloride 0.9% 500 ML 999 ML IV (20:49)
== END 2023-06-05 21:31 | disposition home or self-care (01) ==
PROVIDERS: Emergency Provider Emergency Medicine; PCP Nurse Practitioner Family
DX: N39.0 Urinary tract infection, site not specified (principal); I48.20 Chronic atrial fibrillation, unspecified; Z79.82 Long term (current) use of aspirin; Z11.52 Encounter for screening for COVID-19; I11.0 Hypertensive heart disease with heart failure; I50.9 Heart failure, unspecified; E78.5 Hyperlipidemia, unspecified
CPT/HCPCS: 71045; 80053; 81001; 83605; 83735; 83880; 84443; 84484; 85025; 87077; 87086; 87186; 87426; 87804; 93005; 96374; 99285; J0696; J7040

== ENCOUNTER 2023-07-01 09:00 | Emergency (ER) | payer MEDICARE, MEDICAID, SELFPAY ==
[2023-07-01 09:02] VITALS: BP 186/101; PULSE 96; RESP 16; TEMP 36.6; O2SAT 96; BMI 20.8
--- NOTE | 2023-07-01 09:15 | XR_ITS ---
WS: [id number] Pelvis and RIGHT hip. HISTORY: Pain. COMPARISON: 09/01/2022. Marked diffuse osteopenia. Patient is rotated to the RIGHT. There is artifact overlying the soft tiss ues from patient's clothing. No fractures are identified. Poor visualization of the LEFT superior pub ic rami due to overlapping bowel. Extensive vascular calcifications. No RIGHT hip fracture is identified. Impression: 1. Severe osteopenia. 2. No RIGHT hip fracture is identified. 3. Extensive vascular calcifications within the artery. Note: Osteopenia and the overlying clothing artifact limits bony detail. If there is continued concer n for fracture consider CT evaluation.
[2023-07-01 09:21] LABS: Basophils # 0.1 10^3/uL (0.0-0.1); Basophils % 0.7 %; Eosinophils # 0.1 10^3/uL (0.0-0.8); Eosinophils % 0.8 %; Hematocrit 35.2 % (36-47); Lymphocytes % 13.2 %; Mean Corpuscular HGB Conc 33.8 g/dL (30-55); Mean Corpuscular Hemoglobin 34.4 pg (27-33); Mean Corpuscular Volume 101.7 fl (85-98); Monocytes # 0.5 10^3/uL (0.2-0.9); Monocytes % 6.3 %; Neutrophils # 5.63 10^3/uL (1.8-7.7); Neutrophils % 78.3 %; Nucleated Red Blood Cells % 0 %; Platelet Count 197 10^3/cmm (157-399); Red Blood Count 3.46 10^6/uL (3.85-5.65); Red Cell Distribution Width 14.5 % (12.1-15.1); White Blood Count 7.19 10^3/uL (3.29-11.43)
--- NOTE | 2023-07-01 09:41 | CT_ITS ---
WS: [id number] CT ANGIOGRAPHY OF THE ABDOMINAL AORTA WITH RUNOFF TO THE ANKLES HISTORY: right upper leg pain TECHNIQUE: Arterial injection is performed during imaging to evaluate the aorta and runoff vessels to the ankles. MIP and volume rendering imaging has also been performed. All images are reviewed. All C T scans at [facility] use at least one of these dose optimization techniques: automated exposu re control; mA and/or kV adjustment per patient size (includes targeted exams where dose is matched t o clinical indication); or iterative reconstruction. Contrast: Omnipaque 350; 100 mL IV. DLP: 755.73 mGy.cm COMPARISON: None available. Aorta: Atherosclerosis aorta. Deviation of the aorta to the RIGHT. Calcified atherosclerotic plaque a nd mild intimal thickening. No aneurysm. Celiac axis and SMA are patent. Patent renal arteries. Mild atherosclerotic plaque at the origin of the renal arteries. DENIS is still patent. RIGHT lower extremity arterial system: Patent RIGHT common iliac artery (small amount of thrombus in the iliac artery. Normal bifurcation with a few calcifications. RIGHT external iliac artery, femoral artery, deep profunda and proximal SFA are patent. There is extensive calcification within the superf icial femoral artery with increasing plaque distally. Popliteal artery is patent. Trifurcation is int act but the caliber of the arteries is very small with heavy calcification. The anterior tibial arter y and the peroneal arteries in the distal posterior tibial artery do not contain contrast and are pro bably obstructed. LEFT lower extremity Asst.: Common iliac, internal and external iliacs and the femoral artery are pat ent. SFA and deep profundus are patent. Increasing plaque throughout the SFA. There is heavy contiguo us calcified plaque narrowing the lumen. Intermittent visualization of the lumen in the Homer's loco l and the popliteal artery but there is contrast present. Popliteal artery patent. Increasing plaque in calcification below the knee. Very limited evaluation 3 vessels below the knee. Heavy calcificatio n in the lumen of the arteries is not well visualized. Suspect high-grade stenoses and poor runoff to the ankle. Right-sided diaphragmatic hernia containing colon and small bowel. Small amount of liver projects int o the diaphragmatic hernia. Hepatic cyst. No bile duct dilatation. Negative gallbladder. Negative spl een and adrenal glands. Pancreatic atrophy. No adrenal mass. No renal obstruction. No solid mass. No GI tract obstruction. Distal colonic diverticular disease. No acute diverticulitis. No adenopathy or ascites. No hip fracture or destructive bone lesions. Central and bilateral foraminal stenoses throughout the lumbar spine. IMPRESSION: 1. Severe, contiguous calcification noted bilaterally throughout the superficial femoral arteries ex tending through the arteries below the knee. Very poor runoff via all 3 arteries below the knee. Vess els are poorly visualized due to the dense calcification but there is significant stenosis bilaterall y. 2. No aortic aneurysm. 3. 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 Progressed since the study from 2013. 4. No GI tract obstruction. Sigmoid diverticulosis without without acute diverticulitis. 5. 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 Component of central and foraminal stenosi s in the lumbar spine. Most significant at L4-5 and L5-S1, most significant on the RIGHT. Stenosis du e to combination of the scoliosis, facet disease, disc protrusions and osteophytosis.
[2023-07-01 09:42] LABS: Alanine Aminotransferase 15 U/L (0-33); Albumin Level 4.1 g/dL (3.5-5.2); Alkaline Phosphatase 72 U/L (35-105); Anion Gap 19.7 (5-19); Aspartate Amino Transferase 26 U/L (0-32); Blood Urea Nitrogen 21 mg/dL (8-23); Carbon Dioxide 21 mmol/L (22-29); Chloride 97 mmol/L (98-107); Globulin 2.9 g/dL (1.3-4.6); Glucose 85 mg/dL (65-115); Osmolality Calculated 280 mOsm/kg (285-295); Potassium 3.7 mmol/L (3.5-5.1); Sodium 134 mmol/L (136-145); Total Bilirubin 0.6 mg/dL (0.15-1.2)
[2023-07-01 09:43] LABS: Lactic Sepsis W/Reflex 0.9 mmol/L (0.5-2.2)
--- NOTE | 2023-07-01 09:44 | PC.PHAR ---
pt is from [facility] [phone] grajeda admin from [facility] pt took all am meds and a prn norco this am at 05:01-
[2023-07-01 09:49] LABS: Procalcitonin 0.15 ng/mL (0-0.5)
[2023-07-01 10:15] VITALS: BP 152/98; PULSE 86; O2SAT 97
--- NOTE | 2023-07-01 10:16 | W.ED.BACK ---
HPI - Back Pain/Injury General: Chief Complaint: Back Pain/Injury Stated Complaint: RL back pain x4 days Time Seen by Provider: 07/01/23 09:02 History of Present Illness: 82-year-old female presents to the emergency department with complaints of right lower back and hip pain. She states she was sitting down at a table approximately 4 days ago when she developed sudden onset of right lower back and hip pain. She denies recent known injury or trauma. She states she does have a longstanding history of rheumatoid arthritis she states the pain was so bad that she could not get out of bed this morning and states she also had an episode of incontinence. She denies change in sensation or mobility. She does state that the pain is a 10 out of 10 and described as a sharp stabbing pain. She denies numbness or tingling to the extremity. Review of Systems General: Reports: 10 or more systems reviewed and unremarkable except in HPI and below Musc: Reports: back pain, extremity pain and joint pain FORMERLY [facility], [facility]1983 ED PFSH: Medical History Osteoporosis Immunization counseling Post-menopausal osteoporosis Atrial fibrillation She has a history of prolonged bleeding and for that reason, was taken off the Coumadin, in the past CHF (congestive heart failure) Cardiomyopathy Hypertension Hyperlipidemia Mitral valve regurgitation High risk medication use Immunization counseling Current chronic use of systemic steroids Osteoporosis screening Rheumatoid arthritis with rheumatoid factor Surgical History History of hysterectomy Family History Father Myocardial infarction CAD (coronary artery disease) Daughter Diabetes Brother Cancer CHF (congestive heart failure) CAD (coronary artery disease) Sister CAD (coronary artery disease) Cancer Mother Stroke Denies family history of Rheumatoid arthritis Lupus Clotting disorder Dementia Chronic kidney disease (CKD) Suicide Anesthesia complication Bleeding disorder Lung disease Social History Smoking and tobacco/nicotine status: never used tobacco/nicotine Alcohol intake: never Substance/Drug Use: never Physical Exam Narrative: EXAM NARRATIVE: Constitutional: the patient appears well nourished and of normal development. Vital signs as documented. No acute distress at present. Alert and oriented-to person, place, time and situation. Head, eyes, ears, nose, mouth, throat: Normocephalic, atraumatic. Pupils-equal, round, reactive to light. No scleral icterus. Normal-appearing external ears. Normal appearing nasal turbinates, no drainage. No obvious oral lesions, posterior oropharynx without erythema or exudates. Neck: Supple, trachea is midline, no lymphadenopathy, no jugular venous distension, thyromegaly, or carotid bruits. Carotid upstrokes are brisk bilaterally. Lungs: clear to auscultation to all lung bautista. Symmetrical rise and fall of chest, no obvious signs of increased work of breathing at present. Cardiac: Regular rate and rhythm, positive S1, S2. No murmurs, rubs or gallops that I can appreciate Abdomen: Soft, non-tender to palpation, normal active bowel sounds to all quadrants. No palpable masses, no organomegaly and abdominal bruits. Extremities: 2+ pulses in the upper extremities that are equal bilaterally, 1+ pulses in the lower extremities that are equal bilaterally. Non-edematous. Moves all extremities, sensation to all extremities are noted. There is gross bony abnormalities to the bilateral hands with ulnar deviation consistent with severe rheumatoid arthritis. The patient's ankles are also significantly deformed secondary to her rheumatoid arthritis. She states she does ambulate with a walker. Any palpation to the greater trochanter and right gluteal region causes significant pain. Capillary refill is less than 3 seconds in all extremities. Skin: Warm, dry, she is currently being treated for a pressure ulcer to the right buttocks area Course Vital Signs: Vital signs: Vital Signs Temperature 97.9 F 07/01/23 09:02 Pulse Rate 88 07/01/23 11:00 Respiratory Rate 16 07/01/23 09:02 Blood Pressure 176/81 07/01/23 11:00 Pulse Oximetry 97 07/01/23 11:00 Oxygen Delivery Me thod Room Air 07/01/23 11:00 MDM - Back Pain/Injury Medical Decision Making Physical exam completed and documented I will obtain a CBC CMP and a CT scan of the aorta with IV runoff concerning for arterial and venous occlusion as the plain film x-ray demonstrated significant arterial calcifications. Medical Records I reviewed the patient's medical records. Labs I reviewed the patient's lab results. 07/01/23 09:13 07/01/23 09:13 Laboratory Results WBC 7.19 10^3/uL (3.29-11.43) 07/01/23 09:13 RBC 3.46 10^6/uL (3.85-5.65) L 07/01/23 09:13 Hgb 11.90 g/dL (11.27-16.99) 07/01/23 09:13 Hct 35.2 % (36-47) L 07/01/23 09:13 MCV 101.7 fl (85-98) H 07/01/23 09:13 MCH 34.4 pg (27-33) H 07/01/23 09:13 MCHC 33.8 g/dL (30-55) 07/01/23 09:13 RDW 14.5 % (12.1-15.1) 07/01/23 09:13 Plt Count 197 10^3/cmm (157-399) 07/01/23 09:13 MPV 9.0 fL (7.4-10.4) 07/01/23 09:13 Neut % (Auto) 78.3 % 07/01/23 09:13 Lymph % (Auto) 13.2 % 07/01/23 09:13 [place] % (Auto) 6.3 % 07/01/23 09:13 Eos % (Auto) 0.8 % 07/01/23 09:13 Baso % (Auto) 0.7 % 07/01/23 09:13 Neut # (Auto) 5.63 10^3/uL (1.8-7.7) 07/01/23 09:13 Lymph # (Auto) 1.0 10^3/uL (0.8-4.8) 07/01/23 09:13 [place] # (Auto) 0.5 10^3/uL (0.2-0.9) 07/01/23 09:13 Eos # (Auto) 0.1 10^3/uL (0.0-0.8) 07/01/23 09:13 Baso # (Auto) 0.1 10^3/uL (0.0-0.1) 07/01/23 09:13 Nucleated RBC % (auto) 0 % 07/01/23 09:13 Nucleated RBCs # 0.0 /100WBC 07/01/23 09:13 Sodium 134 mmol/L (136-145) L 07/01/23 09:13 Potassium 3.7 mmol/L (3.5-5.1) 07/01/23 09:13 Chloride 97 mmol/L (98-107) L 07/01/23 09:13 Carbon Dioxide 21 mmol/L (22-29) L 07/01/23 09:13 Anion Gap 19.7 (5-19) H 07/01/23 09:13 BUN 21 mg/dL (8-23) 07/01/23 09:13 Creatinine 0.8 mg/dL (0.5-0.9) 07/01/23 09:13 GFR Calculation Not Reportable 07/01/23 09:13 Glucose 85 mg/dL (65-115) 07/01/23 09:13 Calculated Osmolality 280 mOsm/kg (285-295) L 07/01/23 09:13 Lactic Acid 0.9 mmol/L (0.5-2.2) 07/01/23 09:13 Calcium 10.0 mg/dL (8.5-10.5) 07/01/23 09:13 Total Bilirubin 0.6 mg/dL (0.15-1.2) 07/01/23 09:13 AST 26 U/L (0-32) 07/01/23 09:13 ALT 15 U/L (0-33) 07/01/23 09:13 Alkaline Phosphatase 72 U/L (35-105) 07/01/23 09:13 Total Protein 7.0 g/dL (6.6-8.7) 07/01/23 09:13 Albumin 4.1 g/dL (3.5-5.2) 07/01/23 09:13 Globulin 2.9 g/dL (1.3-4.6) 07/01/23 09:13 Procalcitonin 0.15 ng/mL (0-0.5) 07/01/23 09:13 Urine Color Yellow (Yellow) 07/01/23 10:09 Urine Appearance Clear (CLEAR) 07/01/23 10:09 Urine pH 6.5 (5-7) 07/01/23 10:09 Ur Specific [place] 1.015 (1.005-1.030) 07/01/23 10:09 Urine Protein Neg (Negative) 07/01/23 10:09 Urine Glucose (UA) Norm (Normal) 07/01/23 10:09 Urine Ketones 2+ (Negative) H 07/01/23 10:09 Urine Blood 2+ (Negative) H 07/01/23 10:09 Urine Nitrate Negative (Negative) 07/01/23 10:09 Urine Bilirubin Neg (Negative) 07/01/23 10:09 Urine Urobilinogen Norm mg/dL (Negative) 07/01/23 10:09 Ur Leukocyte Esterase Negative (Negative) 07/01/23 10:09 Urine RBC 0-4 /hpf (0-2) H 07/01/23 10:09 Urine WBC Rare /hpf (0-5) 07/01/23 10:09 Ur Squamous Epith Cells 5-10 /hpf (0-5) H 07/01/23 10:09 Amorphous Sediment 1+ /hpf 07/01/23 10:09 Urine Bacteria Trace /hpf (NONE) 07/01/23 10:09 Coarse Granular Casts 0-4 /lpf H 07/01/23 10:09 All radiology interpretation(s) finalized by discharge Discharge Plan Discharge Patient Disposition: Home Clinical Impression: Arthralgia of right hip, Rheumatoid arthritis with rheumatoid factor, Low back pain Condition: Stable Prescriptions: No Action aspirin [Adult Low Dose Aspirin] 81 mg tablet,delayed release (DR/EC) 81 mg PO DAILY@08 atenolol 25 mg tablet 25 mg PO DAILY@08 polysaccharide iron complex [Ferrex 150] 150 mg iron capsule 150 mg PO DAILY@08 lisinopril 2.5 mg tablet 2.5 mg PO DAILY@08 tramadol 50 mg tablet 50 mg PO Q6H PRN (Reason: Breakthrough Pain) hydrocodone-acetaminophen 10-325 mg tablet 1 tab PO Q6H PRN (Reason: Pain) baclofen 10 mg tablet 5 mg PO TID PRN (Reason: neck pain) lorazepam 0.5 mg tablet 0.5 mg PO BID PRN (Reason: Anxiety) cetirizine 10 mg tablet 10 mg PO DAILY@08 methotrexate sodium 2.5 mg tablet See Rx Instructions PO .week Qty: 120 0RF Rx Instructions: give four tabs po bid@08:00,16:00 one time weekly on saturday (handle with care.chemo) omeprazole 20 mg capsule,delayed release(DR/EC) 20 mg PO DAILY PRN (Reason: Acid Reflux) calcium carbonate [Oyster Shell Calcium 500] 500 mg calcium (1,250 mg) Tablet 1,000 mg PO DAILY@20 cyanocobalamin (vitamin B-12) [Vitamin B-12] 1,000 mcg Tablet 1,000 mcg PO DAILY@08 Artificial Tears([id number]) 1-0.2-0.2 % Drops 1 drp ophthalmic (eye) TID PRN (Reason: unknown) diclofenac sodium 1 % gel See Rx Instructions .ROUTE .COMPLEX Rx Instructions: apply topically to knees bid prn joint pain folic acid 1 mg tablet 1 mg PO DAILY@08 cholecalciferol (vitamin D3) 50 mcg (2,000 unit) tablet 50 mcg PO DAILY@08 prednisone 5 mg tablet 2.5 mg PO DAILY@08 acetaminophen 500 mg Tablet 500 mg PO .EVERY 4-6 HOURS PRN (Reason: Pain) diphenhydramine HCl [Banophen] 25 mg Tablet 25 mg PO Q8H PRN (Reason: allergies) diclofenac sodium 1 % gel See Rx Instructions .ROUTE .COMPLEX Rx Instructions: Apply topically to hands and knees twice daily @05:00,20:00 for joint pain. Discharge Orders: Discharge ED (Routine); Ordered 07/01/23 Ordered By: Felix Briceño Referrals: Yamileth Grove [Primary Care Provider] - Discharge Diet: Advance as tolerated Discharge Activity: Resume usual activity Patient Instructions: Opioid Safety, Pain Management Coding Level of Care Code ED Oim Consultant for Shannon Mosley
[2023-07-01 10:30] LABS: Blood Urine 2+ (Negative); Glucose Urine UA Norm (Normal); Ketones Urine 2+ (Negative); Protein Urine Neg (Negative); Specific Gravity, Urine 1.015 (1.005-1.030); Urine Appearance Clear (CLEAR); Urine Color Yellow (Yellow); pH Urine 6.5 (5-7)
[2023-07-01 10:31] LABS: Add Urine Culture? No; Amorphous Sediment Urine 1+ /hpf; Bacteria Urine TRACE /hpf; Bilirubin Urine Neg (Negative); Coarse Granular Casts Urine 0-4 /lpf; Leukocyte Esterase Urine Negative (Negative); Nitrate Urine Negative (Negative); RBC Urine 0-4 /hpf (0-2); Urobilinogen Urine Norm (Negative); WBC Urine RARE /hpf (0-5)
[2023-07-01] MEDS: iohexol 350 mg/mL 500 mL Btl (per mL) IV (10:53)
[2023-07-01 11:00] VITALS: BP 176/81; PULSE 88; O2SAT 97
[2023-07-01] MEDS: ketorolac 30 mg/mL INJ IVP (12:56)
== END 2023-07-01 14:07 | disposition home or self-care (01) ==
PROVIDERS: Emergency Provider Internal Medicine; PCP Nurse Practitioner Family
DX: M05.9 Rheumatoid arthritis with rheumatoid factor, unspecified (principal); M25.551 Pain in right hip; M54.50 Low back pain, unspecified; Z79.82 Long term (current) use of aspirin; I11.0 Hypertensive heart disease with heart failure; I50.9 Heart failure, unspecified; I43 Cardiomyopathy in diseases classified elsewhere; E78.5 Hyperlipidemia, unspecified
CPT/HCPCS: 36415; 73522; 75635; 80053; 81001; 83605; 84145; 85025; 96374; 99285; J1885; Q9967

== ENCOUNTER 2023-08-17 08:52 | Emergency (ER) | payer OTHER, SELFPAY ==
[2023-08-17 08:55] VITALS: BP 114/61; PULSE 110; RESP 18; TEMP 37.2; O2SAT 94; BMI 14.6
--- NOTE | 2023-08-17 08:59 | CT_ITS ---
WS: [id number] CT FACIAL BONES HISTORY: Trauma TECHNIQUE: Images obtained from the supraorbital location through the mandible. Soft tissue and bone windows are reviewed. Coronal and sagittal reformats have also been submitted. DLP: 2212.[address] scans at [facility] use at least one of these dose optimization techniques: automated e xposure control; mA and/or kV adjustment per patient size (includes targeted exams where dose is matc hed to clinical indication); or iterative reconstruction. COMPARISON: 09/01/2022 Comminuted bilateral nasal bone fractures. Slight leftward deviation of the nasal bones is new also s rosa 09/01/2022. Zygomatic arches and the mandibular condyles are intact. No orbit fracture. Extraocula r muscles are in normal position. Nasal spine is normal. Marked increase in the upper cervical lordosis. C3 anterolisthesis by 3.5 mm. Narrowing of the facet joints in the upper cervical spine. The craniocervical junction is normal. No air-fluid levels or blood in the paranasal sinuses. Mild soft tissue edema surrounding the nasal b ones and extending over the RIGHT orbit and supraorbital region. IMPRESSION: 1. Mildly comminuted and LEFT displaced nasal bone fractures. 2. No additional nasal bone fractures are identified. 3. Moderate soft tissue hematoma centered over the RIGHT orbit and supraorbital region.
--- NOTE | 2023-08-17 08:59 | CT_ITS ---
WS: [id number] CT CERVICAL SPINE HISTORY: Trauma TECHNIQUE: Contiguous 2.0 mm axial imaging performed through the entire cervical spine. Sagittal and coronal reformats also performed. All CT scans at [facility] use at least one of these dose o ptimization techniques: automated exposure control; mA and/or kV adjustment per patient size (include s targeted exams where dose is matched to clinical indication); or iterative reconstruction. DLP: 2212.01 mGy.cm COMPARISON: 09/01/2022 Moderate LEFT curvature cervical spine. Increase in the upper cervical lordosis. C3 anterolisthesis b y 2.4 mm. C5 anterolisthesis by 4.2 mm C6 anterolisthesis by 2.6 mm. The anterolisthesis of C3 is slightly greater than on the prior study. No fracture is identified. Facet joints are significantly narrowed. There is no subluxation. Lateral masses of C1 and C2 are aligned. The odontoid is intact. Severe facet joint arthritis. Bilateral foraminal narrowing throughout the cervical spine with mild c entral stenosis. These changes are similar to the prior examination. Biapical pulmonary fibrosis and scarring. Mild atherosclerotic plaque of the thoracic aorta. IMPRESSION: 1. Severe scoliosis and degenerative changes in the cervical spine. 2. Slight increase in the anterolisthesis of C3 as compared to the prior study of 09/01/2022. No fract ures identified and no change in alignment. This could be positional. 3. Severe cervical spondylosis and facet arthritis.
--- NOTE | 2023-08-17 09:00 | CTR_ITS ---
PROCEDURE INFORMATION: Exam: CT Head Without Contrast Exam date and time: 08/17/2023 9:17 AM Age: 82 years old Clinical indication: Injury or trauma; Fall; Blunt trauma (contusions or hematomas); Additional info: Traumahistory--fell patient was face forward into bathtub. Patient has multiple bruises to face, laceration to nose and bilateral legs. TECHNIQUE: Imaging protocol: Computed tomography of the head without contrast. Radiation optimization: All CT scans at this facility use at least one of these dose optimization techniques: automated exposure control; mA and/or kV adjustment per patient size (includes targeted exams where dose is matched to clinical indication); or iterative reconstruction. COMPARISON: CT head wo con* [id number] 09/01/2022 6:04 AM RADIATION DOSE METRICS: Total DLP (mGy-cm): 814.2 FINDINGS: Brain: Bilateral periventricular white matter and centrum semiovale hypodensities consistent with moderate form of chronic ischemic small vessel disease. No intracranial bleed, recent infarct intracranial mass. Cerebral ventricles: No ventriculomegaly. Paranasal sinuses: Visualized sinuses are unremarkable. No fluid levels. Mastoid air cells: Visualized mastoid air cells are well aerated. Orbital cavities: Post bilateral cataract surgery. Bones/joints: There is a comminuted fracture of the both nasal bones with displacement to the left side. Soft tissues: There is a right frontal supraorbital subgaleal hematoma. Vasculature: Left vertebral artery calcifications. CT/CT head wo con* [id number] IMPRESSION: 1. No intracranial posttraumatic changes. 2. Comminuted fracture of both nasal bones with displacement to the left side.
--- NOTE | 2023-08-17 09:20 | ED_ITS ---
HPI - Trauma General: Chief Complaint: Trauma Stated Complaint: FACIAL TRAUMA S/P FALL Time Seen by Provider: 08/17/23 08:54 Source: patient Mode of arrival: EMS History of Present Illness: 82-year-old female brought in by EMS fro m an assisted living facility. She fell has deformity of her nose multiple abrasions. She has bruises in all of her extremities including some wounds that are wrapped and are little lower extremities bilaterally she has Charcot foot. She tells me she is able to still use a walker. But admits to frequent falls. She denies striking her head no loss consciousness she is not on any anticoagulants MD complaint: fall Associated symptoms: Denies Unable to assess gait, abdominal pain, anorexia, back pain, chest pain, chills, confusion, cough, dental pain, diaphoresis, difficulty breathing, dizziness, epistaxis, fever(s), headache(s), nausea, seizures, short of breath, syncope, visual disturbances, vomiting or weakness Review of Systems Const: Denies: fever(s), chills or diaphoresis ENMT: Denies: dental pain or epistaxis Card: Denies: chest pain or syncope Resp: Denies: dyspnea GI: Denies: abdominal pain, nausea or vomiting : Denies: dysuria, urinary frequency or urinary urgency Musc: Denies: neck pain or back pain Skin/Breast: Denies: rash Neuro: Denies: headache(s), dizziness or confusion PFSH ED PFSH: Medical History Osteoporosis Immunization counseling Post-menopausal osteoporosis Atrial fibrillation She has a history of prolonged bleeding and for that reason, was taken off the Coumadin, in the past CHF (congestive heart failure) Cardiomyopathy Hypertension Hyperlipidemia Mitral valve regurgitation High risk medication use Immunization counseling Current chronic use of systemic steroids Osteoporosis screening Rheumatoid arthritis with rheumatoid factor Surgical History History of hysterectomy Family History Father Myocardial infarction CAD (coronary artery disease) Daughter Diabetes Brother Cancer Congestive heart failure (CHF) CAD (coronary artery disease) Sister CAD (coronary artery disease) Cancer Mother Stroke Denies family history of Rheumatoid arthritis Lupus Clotting disorder Dementia Chronic kidney disease (CKD) Suicide Anesthesia complication Bleeding disorder Lung disease Social History Smoking and tobacco/nicotine status: never used tobacco/nicotine Alcohol intake: never Substance/Drug Use: never Physical Exam Const: GENERAL APPEARANCE: cooperative NUTRITIONAL APPEARANCE: cachectic ORIENTATION/CONSCIOUSNESS: Yes awake, Yes oriented to person, Yes oriented to place and Yes oriented to time HENMT: COMMON NORMALS: hearing grossly normal bilaterally OTHER: Obvious deformity of the nose with deviation of the nasal bones to the left Resp: COMMON NORMALS: normal respiratory effort, No retractions, No use of accessory muscles and clear to auscultation bilaterally AUSCULTATION: clear to auscultation bilaterally Cardio: COMMON NORMALS: regular rate, regular rhythm and No murmurs present (Cardio) RATE: regular rate RHYTHM: regular rhythm GI: COMMON NORMALS: Soft to palpation and No hepatosplenomegaly present AUSCULTATION: Yes normoactive bowel sounds PALPATION: Yes Soft to palpation, No Tenderness to palpation present (GI), No Guarding due to palpation present (GI) and Yes No hepatosplenomegaly present Extremity: COMMON NORMALS: normal to inspection, capillary refill normal, no clubbing, cyanosis or edema, no calf tenderness and no pedal edema Neuro: SENSORIUM/ORIENTATION: Yes oriented to person, Yes oriented to place and Yes oriented to time GAIT: No Unable to assess gait Skin: OTHER: Extensive bruising on all the extremities as well as on the face abrasion to the face from the fall today no open gaping lacerations. Course Vital Signs: Vital signs: Vital Signs Temperature 98.9 F 08/17/23 08:55 Pulse Rate 91 08/17/23 11:06 Respiratory Rate 15 08/17/23 09:54 Blood Pressure 121/59 08/17/23 11:06 Pulse Oximetry 96 08/17/23 11:06 Oxygen Delivery Me thod Room Air 08/17/23 11:06 MDM - Trauma Medical Decision Making Patient is on hospice she has multiple skin tears particularly on the anterior tibia and lower extremities she also has a lot of bruising bilaterally in the extremities and in the arms. She continues to wish to remain in assisted living she is on hospice. Hospice caregivers were here. Reviewed the nasal bone fracture with patient and the family. Will discharge the patient home at this point they do not wish referral for ENT did discuss with him potential complications of the nasal bone fracture including partial obstruction of the nasal passages. There is no evidence of septal hematoma at this time. If they change her mind and do wish to pursue treatment for primary care can make arrangements for referral. Routine wound care topical antibiotic ointment to skin tears. Medical Records I reviewed the patient's medical records. Lab Data I reviewed the patient's lab results. Radiology Impressions Head CT 08/17/23 09:00 IMPRESSION: 1. No intracranial posttraumatic changes. 2. Comminuted fracture of both nasal bones with displacement to the left side. All radiology interpretation(s) finalized by discharge Discharge Plan Discharge Patient Disposition: Home Clinical Impression: Closed fracture nasal bone, Abrasion, Fall Condition: Stable Prescriptions: New mupirocin 2 % ointment 1 applic topical DAILY Qty: 50 0RF No Action aspirin [Adult Low Dose Aspirin] 81 mg tablet,delayed release (DR/EC) 81 mg PO DAILY@08 atenolol 25 mg tablet 25 mg PO DAILY@08 polysaccharide iron complex [Ferrex 150] 150 mg iron capsule 150 mg PO DAILY@08 tramadol 50 mg tablet 50 mg PO Q6H PRN (Reason: Breakthrough Pain) hydrocodone-acetaminophen 10-325 mg tablet 1 tab PO Q6H PRN (Reason: Pain) baclofen 10 mg tablet 5 mg PO TID PRN (Reason: neck pain) lorazepam 0.5 mg tablet 0.5 mg PO BID PRN (Reason: Anxiety) methotrexate sodium 2.5 mg tablet See Rx Instructions PO .week Qty: 120 0RF Rx Instructions: give four tabs po bid@08:00,16:00 one time weekly on saturday (handle with care.chemo) calcium carbonate [Oyster Shell Calcium 500] 500 mg calcium (1,250 mg) Tablet 1,000 mg PO DAILY@20 cyanocobalamin (vitamin B-12) [Vitamin B-12] 1,000 mcg Tablet 1,000 mcg PO DAILY@08 Artificial Tears([id number]) 1-0.2-0.2 % Drops 1 drp ophthalmic (eye) TID PRN (Reason: unknown) diclofenac sodium 1 % gel 1 ea topical BID folic acid 1 mg tablet 1 mg PO DAILY@08 cholecalciferol (vitamin D3) 50 mcg (2,000 unit) tablet 50 mcg PO DAILY@08 acetaminophen 500 mg Tablet 500 mg PO Q4H PRN (Reason: Pain) diphenhydramine HCl [Banophen] 25 mg Tablet 25 mg PO Q8H PRN (Reason: allergies) senna 8.6 mg Tablet 17.2 mg PO DAILY PRN (Reason: Constipation) prednisone 10 mg tablet 10 mg PO DAILY morphine concentrate 100 mg/5 mL (20 mg/mL) solution 20 mg PO Q1H PRN (Reason: Pain) ondansetron HCl 4 mg tablet 4 mg PO Q4H PRN (Reason: Nausea And Vomiting) morphine 15 mg tablet extended release 1 mg PO BID atropine 1 % drops 2 - 4 drp ophthalmic (eye) Q1H PRN (Reason: Secretions) Lorazepam Intensol 2 mg/mL concentrate 2 mg PO Q1H PRN (Reason: Anxiety) zinc oxide 12 % Cream 1 applic TOPICAL QID PRN (Reason: Rash) zinc oxide 12 % Cream 1 applic TOPICAL DAILY MediHoney (honey) 100 % Paste 1 applic TOPICAL DAILY Discharge Orders: Discharge ED (Routine); Ordered 08/17/23 Ordered By: Jamel Shipley Referrals: Yamileth Grove [Primary Care Provider] - Patient Instructions: Skin Tear (ED), Opioid Safety, Pain Management, Wound Care (General) Activity Restrictions/Additional Instructions: Thank you for choosing [facility] for your healthcare needs today. Please realize this is an emergency room and that we are providing you with a medical screening exam and this may not be complete and all inclusive of all the testing and or work up that you may need to determine your ailment or severity of your illness. It is very important that you follow up as instructed or that you return to the Emergency Department should you have concerns or if your condition changes or worsens in any way. Coding Level of Care Code ED Family And Consumer Education Teacher for Shannon Mosley
[2023-08-17 09:54] VITALS: BP 116/55; PULSE 85; RESP 15; O2SAT 95
[2023-08-17] MEDS: tetanus-diphtheria tox (adult) 0.5 mL SDV IM (10:13)
[2023-08-17 11:06] VITALS: BP 121/59; PULSE 91; O2SAT 96
[2023-08-17 13:00] VITALS: BP 117/52; PULSE 92; O2SAT 95
[2023-08-17 14:00] VITALS: BP 111/63; PULSE 89; RESP 16; O2SAT 96
[2023-08-17 14:03] VITALS: RESP 20; O2SAT 94
[2023-08-17] MEDS: morphine 4 mg/mL SDV 1 mL IVP (14:03)
[2023-08-17] MEDS: ondansetron 2 mg/ML SDV 2 mL 4 MG IVP (14:03)
[2023-08-17] MEDS: mupirocin oint 22 gm 1 APPLIC TOPICAL (14:15)
== END 2023-08-17 14:34 | disposition home or self-care (01) ==
PROVIDERS: Emergency Provider Family Medicine; PCP Nurse Practitioner Family
DX: S02.2XXA Fracture of nasal bones, initial encounter for closed fracture (principal); S00.81XA Abrasion of other part of head, initial encounter; I11.0 Hypertensive heart disease with heart failure; I50.9 Heart failure, unspecified; I43 Cardiomyopathy in diseases classified elsewhere; E78.5 Hyperlipidemia, unspecified; Z79.82 Long term (current) use of aspirin; W18.30XA Fall on same level, unspecified, initial encounter; Y92.099 Unspecified place in other non-institutional residence as the place of occurrence of the external cause; Z23 Encounter for immunization
CPT/HCPCS: 70450; 70486; 72125; 90471; 90714; 96374; 96375; 99285; J2270; J2405

== ENCOUNTER → 2023-09-30 14:17 | Outpatient (BNVA) | payer MEDICARE, MEDICAID, SELFPAY | PROVIDERS: PCP Nurse Practitioner Family; Visit Provider Podiatrist Foot & Ankle Surgery | DX: L97.512 Non-pressure chronic ulcer of other part of right foot with fat layer exposed; M20.41 Other hammer toe(s) (acquired), right foot; M20.42 Other hammer toe(s) (acquired), left foot; L84 Corns and callosities; M05.9 Rheumatoid arthritis with rheumatoid factor, unspecified; M76.829 Posterior tibial tendinitis, unspecified leg; L03.90 Cellulitis, unspecified | CPT/HCPCS: 73630; 87070; 87075; 87205; 99213 ==

== ENCOUNTER 2023-10-03 08:59 | Emergency (ER) | payer MEDICARE, MEDICAID, SELFPAY ==
[2023-10-03 09:07] VITALS: BP 134/78; PULSE 104; RESP 22; TEMP 36.8; O2SAT 95; BMI 20.1
--- NOTE | 2023-10-03 09:23 | ECG_ITS ---
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 Measurements Intervals [place] Rate: 106 P: 71 OR: 155 QRS: -74 QRSD: 125 T: -40 QT: 322 QTc: 429 Interpretive Statements SINUS TACHYCARDIA RIGHT BUNDLE BRANCH BLOCK [120+ ms QRS DURATION, UPRIGHT V1, 40+ ms S IN I/aVL/V4/V5/V6] LEFT ANTERIOR FASCICULAR BLOCK [QRS AXIS <= -45, QR IN I, RS IN II] POSSIBLE ANTERIOR MYOCARDIAL INFARCTION , OF INDETERMINATE AGE [30 ms Q WAVE IN V3/V4, OR R < 0.2 mV IN V4] Compared to ECG 06/05/2023 18:17:15 Myocardial infarct finding now present Sinus rhythm no longer present Electronically Signed On 10-03-2023 23:01:47 CDT by Gagandeep Grove M.D. [id number]
--- NOTE | 2023-10-03 09:32 | W.ED.GENADLT ---
HPI - General Adult General: Chief complaint: General Medical Stated complaint: fall, all over pain Time Seen by Provider: 10/03/23 09:12 Source: patient Mode of arrival: ambulatory History of Present Illness: 83-year-old female who presents to the emergency room after a fall. She arrives by ambulance she was found on the floor for known length of time. No vomiting. She denies any chest pain. . She states she hurts all over. She has a sacral decub. She is currently on hospice in assisted living. She did strike her head when she fell no report of vomiting. Onset (ago): unknown [facility] PFS: Medical History Osteoporosis Immunization counseling Post-menopausal osteoporosis Atrial fibrillation She has a history of prolonged bleeding and for that reason, was taken off the Coumadin, in the past CHF (congestive heart failure) Cardiomyopathy Hypertension Hyperlipidemia Mitral valve regurgitation High risk medication use Immunization counseling Current chronic use of systemic steroids Osteoporosis screening Rheumatoid arthritis with rheumatoid factor Surgical History History of hysterectomy Family History Father Myocardial infarction CAD (coronary artery disease) Daughter Diabetes Brother Cancer Congestive heart failure (CHF) CAD (coronary artery disease) Sister CAD (coronary artery disease) Cancer Mother Stroke Denies family history of Rheumatoid arthritis Lupus Clotting disorder Dementia Chronic kidney disease (CKD) Suicide Anesthesia complication Bleeding disorder Lung disease Social History Smoking and tobacco/nicotine status: never used tobacco/nicotine Alcohol intake: never Substance/Drug Use: never Course Vital Signs: Vital signs: Vital Signs Temperature 98.3 F 10/03/23 09:07 Pulse Rate 85 10/03/23 12:08 Respiratory Rate 18 10/03/23 12:08 Blood Pressure 125/62 10/03/23 12:08 Pulse Oximetry 94 10/03/23 12:08 Oxygen Delivery Me thod Room Air 10/03/23 12:08 MDM - General Adult Medical Decision Making Imaging reviewed. No acute fractures. CPK is normal range. Patient is on hospice. She probably [facility] the [facility] but they are on hospice to avoid penitentiary placement. They wish to continue at the assisted living will discharge back to the assisted living. Medical Records I reviewed the patient's medical records. Lab Data I reviewed the patient's lab results. 10/03/23 10:32 10/03/23 10:32 Radiology Impressions Cervical Spine X-Ray 10/03/23 10:52 IMPRESSION: No acute findings. Chest X-Ray 10/03/23 10:52 IMPRESSION: Stable abnormal chest with no acute cardiopulmonary abnormality identified. Head CT 10/03/23 10:52 IMPRESSION: 1. No acute findings. 2. Chronic white matter ischemic changes noted Pelvis X-Ray 10/03/23 10:52 IMPRESSION: No acute abnormality. Laboratory Results WBC 9.54 10^3/uL (3.29-11.43) 10/03/23 10:32 RBC 3.07 10^6/uL (3.85-5.65) L 10/03/23 10:32 Hgb 9.70 g/dL (11.27-16.99) L 10/03/23 10:32 Hct 30.8 % (36-47) L 10/03/23 10:32 MCV 100.3 fl (85-98) H 10/03/23 10:32 MCH 31.6 pg (27-33) 10/03/23 10:32 MCHC 31.5 g/dL (30-55) 10/03/23 10:32 RDW 16.2 % (12.1-15.1) H 10/03/23 10:32 Plt Count 160 10^3/cmm (157-399) 10/03/23 10:32 MPV 9.3 fL (7.4-10.4) 10/03/23 10:32 Neut % (Auto) 87.6 % 10/03/23 10:32 Lymph % (Auto) 3.9 % 10/03/23 10:32 [place] % (Auto) 6.1 % 10/03/23 10:32 Eos % (Auto) 0.7 % 10/03/23 10:32 Baso % (Auto) 0.2 % 10/03/23 10:32 Neut # (Auto) 8.36 10^3/uL (1.8-7.7) H 10/03/23 10:32 Lymph # (Auto) 0.4 10^3/uL (0.8-4.8) L 10/03/23 10:32 [place] # (Auto) 0.6 10^3/uL (0.2-0.9) 10/03/23 10:32 Eos # (Auto) 0.1 10^3/uL (0.0-0.8) 10/03/23 10:32 Baso # (Auto) 0.0 10^3/uL (0.0-0.1) 10/03/23 10:32 Nucleated RBC % (auto) 0 % 10/03/23 10:32 Nucleated RBCs # 0.0 /100WBC 10/03/23 10:32 Sodium 133 mmol/L (136-145) L 10/03/23 10:32 Potassium 3.4 mmol/L (3.5-5.1) L 10/03/23 10:32 Chloride 96 mmol/L (98-107) L 10/03/23 10:32 Carbon Dioxide 27 mmol/L (22-29) 10/03/23 10:32 Anion Gap 13.4 (5-19) 10/03/23 10:32 BUN 15 mg/dL (8-23) 10/03/23 10:32 Creatinine 0.6 mg/dL (0.5-0.9) 10/03/23 10:32 GFR Calculation Not Reportable 10/03/23 10:32 Glucose 88 mg/dL (65-115) 10/03/23 10:32 Calculated Osmolality 276 mOsm/kg (285-295) L 10/03/23 10:32 Calcium 8.7 mg/dL (8.5-10.5) 10/03/23 10:32 Magnesium 1.6 mg/dL (1.7-2.3) L 10/03/23 10:32 Total Bilirubin 0.6 mg/dL (0.15-1.2) 10/03/23 10:32 AST 15 U/L (0-32) 10/03/23 10:32 ALT 11 U/L (0-33) 10/03/23 10:32 Alkaline Phosphatase 72 U/L (35-105) 10/03/23 10:32 Creatine Kinase 53 U/L (26-192) 10/03/23 10:32 Total Protein 5.8 g/dL (6.6-8.7) L 10/03/23 10:32 Albumin 3.3 g/dL (3.5-5.2) L 10/03/23 10:32 Globulin 2.5 g/dL (1.3-4.6) 10/03/23 10:32 Urine Color Yellow (Yellow) 10/03/23 11:20 Urine Appearance Clear (CLEAR) 10/03/23 11:20 Urine pH 6.5 (5-7) 10/03/23 11:20 Ur Specific [place] 1.015 (1.005-1.030) 10/03/23 11:20 Urine Protein Neg (Negative) 10/03/23 11:20 Urine Glucose (UA) Norm (Normal) 10/03/23 11:20 Urine Ketones Negative (Negative) 10/03/23 11:20 Urine Blood Trace (Negative) H 10/03/23 11:20 Urine Nitrate Negative (Negative) 10/03/23 11:20 Urine Bilirubin Neg (Negative) 10/03/23 11:20 Urine Urobilinogen Norm mg/dL (Negative) 10/03/23 11:20 Ur Leukocyte Esterase Trace (Negative) H 10/03/23 11:20 Urine RBC 0-4 /hpf (0-2) H 10/03/23 11:20 Urine WBC 10-15 /hpf (0-5) H 10/03/23 11:20 Ur Squamous Epith Cells Rare /hpf (0-5) 10/03/23 11:20 Ur Transition Epith Cell 0-4 /hpf 10/03/23 11:20 Ur Renal Epithelial Cell Rare /hpf 10/03/23 11:20 Amorphous Sediment Trace /hpf 10/03/23 11:20 Urine Bacteria Trace /hpf (NONE) 10/03/23 11:20 Urine Mucus None /hpf 10/03/23 11:20 All radiology interpretation(s) finalized by discharge Discharge Plan Discharge Patient Disposition: Home Clinical Impression: Fall, Closed head injury Condition: Stable Prescriptions: No Action aspirin [Adult Low Dose Aspirin] 81 mg tablet,delayed release (DR/EC) 81 mg PO DAILY@08 atenolol 25 mg tablet 25 mg PO DAILY@08 tramadol 50 mg tablet 50 mg PO Q6H PRN (Reason: Breakthrough Pain) hydrocodone-acetaminophen 10-325 mg tablet 1 tab PO Q6H PRN (Reason: Pain) baclofen 10 mg tablet 5 mg PO TID PRN (Reason: neck pain) lorazepam 0.5 mg tablet 0.5 mg PO BID PRN (Reason: Anxiety) methotrexate sodium 2.5 mg tablet See Rx Instructions PO .week Qty: 120 0RF Rx Instructions: give four tabs po bid@08:00,16:00 one time weekly on saturday (handle with care.chemo) (DME) custom orthopedic shoes See Rx Instructions .Route .MEDSUPPLY Qty: 1 0RF Rx Instructions: As directed by tucker suggs cephalexin 500 mg capsule 500 mg PO QID Qty: 40 0RF mupirocin 2 % ointment 1 applic topical BID Qty: 15 0RF Artificial Tears([id number]) 1-0.2-0.2 % Drops 1 drp ophthalmic (eye) TID PRN (Reason: unknown) diclofenac sodium 1 % gel 1 ea topical BID folic acid 1 mg tablet 1 mg PO DAILY@08 acetaminophen 500 mg Tablet 500 mg PO Q4H PRN (Reason: Pain) diphenhydramine HCl [Banophen] 25 mg Tablet 25 mg PO Q8H PRN (Reason: allergies) sennosides [senna] 8.6 mg Tablet 17.2 mg PO DAILY PRN (Reason: Constipation) prednisone 10 mg tablet 10 mg PO DAILY morphine concentrate 100 mg/5 mL (20 mg/mL) solution 20 mg PO Q1H PRN (Reason: Pain) ondansetron HCl 4 mg tablet 4 mg PO Q4H PRN (Reason: Nausea And Vomiting) morphine 15 mg tablet extended release 1 mg PO BID atropine 1 % drops 2 - 4 drp ophthalmic (eye) Q1H PRN (Reason: Secretions) lorazepam [Lorazepam Intensol] 2 mg/mL concentrate 2 mg PO Q1H PRN (Reason: Anxiety) Discharge Orders: Discharge ED (Routine); Ordered 10/03/23 Ordered By: Jamel Shipley Referrals: Yamileth Grove [Primary Care Provider] - Discharge Diet: Usual diet Discharge Activity: Increase activity as tolerated Patient Instructions: Opioid Safety, Pain Management Activity Restrictions/Additional Instructions: Thank you for choosing [facility] for your healthcare needs today. Please realize this is an emergency room and that we are providing you with a medical screening exam and this may not be complete and all inclusive of all the testing and or work up that you may need to determine your ailment or severity of your illness. It is very important that you follow up as instructed or that you return to the Emergency Department should you have concerns or if your condition changes or worsens in any way. You are seen today after complaints of a fall. CT of your head x-rays of the neck and pelvis did not show any acute fractures. Follow-up with your primary care doctor as needed continue with hospice. Coding Level of Care Code ED Roadability Machine Operator for Shannon Mosley
[2023-10-03 10:43] LABS: Basophils % 0.2 %; Eosinophils # 0.1 10^3/uL (0.0-0.8); Eosinophils % 0.7 %; Hematocrit 30.8 % (36-47); Lymphocytes # 0.4 10^3/uL (0.8-4.8); Lymphocytes % 3.9 %; Mean Corpuscular HGB Conc 31.5 g/dL (30-55); Mean Corpuscular Hemoglobin 31.6 pg (27-33); Mean Corpuscular Volume 100.3 fl (85-98); Mean Platelet Volume 9.3 fL (7.4-10.4); Monocytes # 0.6 10^3/uL (0.2-0.9); Monocytes % 6.1 %; Neutrophils # 8.36 10^3/uL (1.8-7.7); Neutrophils % 87.6 %; Nucleated Red Blood Cells % 0 %; Platelet Count 160 10^3/cmm (157-399); Red Blood Count 3.07 10^6/uL (3.85-5.65); Red Cell Distribution Width 16.2 % (12.1-15.1); White Blood Count 9.54 10^3/uL (3.29-11.43)
--- NOTE | 2023-10-03 10:52 | CTR_ITS ---
PROCEDURE INFORMATION: Exam: CT Head Without Contrast Exam date and time: 10/03/2023 11:44 AM Age: 83 years old Clinical indication: Injury or trauma; Fall; Blunt trauma (contusions or hematomas) TECHNIQUE: Imaging protocol: Computed tomography of the head without contrast. Radiation optimization: All CT scans at this facility use at least one of these dose optimization techniques: automated exposure control; mA and/or kV adjustment per patient size (includes targeted exams where dose is matched to clinical indication); or iterative reconstruction. COMPARISON: CT head wo con* [id number] 08/17/2023 9:17 AM RADIATION DOSE METRICS: Total DLP (mGy-cm): 1116.26 FINDINGS: Brain: There is prominent chronic periventricular white matter ischemic change. There is no evidence of mass effect, hemorrhage or infarct. Cerebral ventricles: No ventriculomegaly. No midline shift. Paranasal sinuses: Visualized sinuses are unremarkable. No fluid levels. Mastoid air cells: Visualized mastoid air cells are well aerated. Bones: Unremarkable. No acute fracture. Soft tissues: Unremarkable. CT/CT head wo con* [id number] IMPRESSION: 1. No acute findings. 2. Chronic white matter ischemic changes noted
--- NOTE | 2023-10-03 10:52 | XR_ITS ---
WS: [id number] XR pelvis 1-2V* [id number] REASON FOR EXAM: trauma FINDINGS: No fracture of the bony pelvis is identified. Pubic rami and symphysis intact. XR/XR pelvis 1-2V* [id number] IMPRESSION: No acute abnormality.
--- NOTE | 2023-10-03 10:52 | XR_ITS ---
WS: [id number] XR chest 1V portable [id number] REASON FOR EXAM: dyspnea FINDINGS: The chest is relatively unchanged compared to 06/05/2023. There is a herniation of colon into the chest. Moderate tortuosity of the thoracic aorta. The heart is enlarged. Chronic interstitial densities in the left lower lung. No definite acute pulmonary parenchymal or pleural abnormality is identified. Significant degenerative spondylosis in the mid and lower thoracic spine. Severe arthropathic change in both shoulder joints. XR/XR chest 1V portable [id number] IMPRESSION: Stable abnormal chest with no acute cardiopulmonary abnormality identified.
--- NOTE | 2023-10-03 10:52 | XRR_ITS ---
PROCEDURE INFORMATION: Exam: XR Cervical Spine Exam date and time: 10/03/2023 11:06 AM Age: 83 years old Clinical indication: Injury or trauma; Fall; Blunt trauma TECHNIQUE: Imaging protocol: Radiologic exam of the cervical spine. Views: 2 or 3 views. COMPARISON: CT cervical spin wo con* [id number] 08/17/2023 9:17 AM FINDINGS: Bones/joints: There is multilevel degenerative disc disease along with vertebral body spurring and facet arthropathy. No fracture or subluxation. Soft tissues: Unremarkable. XR/XR cervical spine 3V* [id number] IMPRESSION: No acute findings.
[2023-10-03 11:09] LABS: Alanine Aminotransferase 11 U/L (0-33); Albumin Level 3.3 g/dL (3.5-5.2); Alkaline Phosphatase 72 U/L (35-105); Anion Gap 13.4 (5-19); Aspartate Amino Transferase 15 U/L (0-32); Blood Urea Nitrogen 15 mg/dL (8-23); Calcium 8.7 mg/dL (8.5-10.5); Carbon Dioxide 27 mmol/L (22-29); Chloride 96 mmol/L (98-107); Creatine Phosphokinase 53 U/L (26-192); Creatinine Clr Calc Pharmacy 42.8105; Globulin 2.5 g/dL (1.3-4.6); Glucose 88 mg/dL (65-115); Magnesium 1.6 mg/dL (1.7-2.3); Osmolality Calculated 276 mOsm/kg (285-295); Potassium 3.4 mmol/L (3.5-5.1); Sodium 133 mmol/L (136-145); Total Bilirubin 0.6 mg/dL (0.15-1.2); Total Protein 5.8 g/dL (6.6-8.7)
[2023-10-03 11:25] VITALS: BP 136/71; PULSE 101; RESP 16; O2SAT 94
--- NOTE | 2023-10-03 11:26 | PC.NURSE ---
HOSPICE CALLED TO RECEIVE UPDATE ON PATIENT. KAVITHA GARNER, INFORMED THAT PATIENT RESTING IN BED, SCANS TAKEN BUT HAVE NOT BEEN READ.
[2023-10-03 11:59] LABS: Add Urine Microscopic? YES; Bilirubin Urine Neg (Negative); Glucose Urine UA Norm (Normal); Ketones Urine Negative (Negative); Leukocyte Esterase Urine Trace (Negative); Nitrate Urine Negative (Negative); Protein Urine Neg (Negative); Specific Gravity, Urine 1.015 (1.005-1.030); Urine Appearance Clear (CLEAR); Urine Color Yellow (Yellow); Urobilinogen Urine Norm (Negative); pH Urine 6.5 (5-7)
[2023-10-03 12:02] LABS: Blood Urine Trace (Negative)
[2023-10-03 12:04] LABS: Add Urine Culture? No; Amorphous Sediment Urine TRACE /hpf; Bacteria Urine TRACE /hpf; RBC Urine 0-4 /hpf (0-2); Renal Epithelial Cells Urine RARE /hpf; Squamous Epithelial Cell Urine RARE /hpf (0-5); Transitional Epi Cells Urine 0-4 /hpf
[2023-10-03 12:08] VITALS: BP 125/62; PULSE 85; RESP 18; O2SAT 94
[2023-10-03 13:13] VITALS: BP 129/80; PULSE 90; RESP 15; O2SAT 99
[2023-10-03 13:51] VITALS: RESP 18; O2SAT 98
[2023-10-03] MEDS: morphine IR 15 mg Tablet PO ×2 (13:51→19:03)
--- NOTE | 2023-10-03 16:42 | PC.NURSE ---
pt waiting on ambulance for transport. pt sleeping. hospice at bedside
[2023-10-03 19:03] VITALS: RESP 20
== END 2023-10-03 19:15 | disposition home or self-care (01) ==
PROVIDERS: Emergency Provider Family Medicine; PCP Nurse Practitioner Family
DX: S09.8XXA Other specified injuries of head, initial encounter (principal); Z79.82 Long term (current) use of aspirin; I11.0 Hypertensive heart disease with heart failure; I50.9 Heart failure, unspecified; I43 Cardiomyopathy in diseases classified elsewhere; E78.5 Hyperlipidemia, unspecified; X58.XXXA Exposure to other specified factors, initial encounter
CPT/HCPCS: 36415; 70450; 71045; 72040; 72170; 80053; 81001; 82550; 83735; 85025; 93005; 99285